=== PATIENT | female | born 1965 | race Caucasian/White ===

== ENCOUNTER 2021-08-31 02:25 | Emergency (ER) | payer OTHER ==
[~2021-08-31] VITALS: Ht 160 cm; Wt 47.2 kg
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
[2021-08-31] MEDS ORDERED: HYDROCODONE/APAP 5/325MG TABLET ONE (03:01)
[2021-08-31] MEDS: HYDROCODONE/APAP 5/325MG TABLET PO ONE (03:04)
--- NOTE | 2021-08-31 03:18 | NUR ---
PT TAKEN TO CT
--- NOTE | 2021-08-31 07:54 | NUR ---
Patient discharged in custody in stable condition. Written and verbal after care instructions given. Patient verbalizes understanding of instruction.
[2021-08-31 07:55] VITALS: BP 135/72
== END 2021-08-31 07:56 ==
LOC: ER 02:35
DX: S00.83XA Contusion of other part of head, initial encounter (principal); M54.2 Cervicalgia; R07.81 Pleurodynia; I10 Essential (primary) hypertension; E11.9 Type 2 diabetes mellitus without complications; Y04.2XXA Assault by strike against or bumped into by another person, initial encounter; Y93.89 Activity, other specified; Y92.89 Other specified places as the place of occurrence of the external cause; Y99.8 Other external cause status
CPT/HCPCS: 70450; 70486; 71100; 72125; 99284; L0172

== ENCOUNTER 2022-04-22 16:21 | Inpatient (IN) | payer MEDICAID, OTHER ==
[~2022-04-22] VITALS: Ht 160 cm; Wt 47.6 kg
--- NOTE | 2022-04-22 18:01 | NUR ---
TO ER 17 FOR EVAL,NO APPARENT CHANGE IN CONDITION
[2022-04-22] MEDS ORDERED: HYDROCODONE/APAP 5/325MG TABLET PO ONE (18:30)
[2022-04-22] MEDS ORDERED: HYDROCODONE/APAP 5/325MG TABLET ONE (19:33)
[2022-04-22] MEDS ORDERED: HYDROMORPHONE 1 MG/1 ML DISP.SYRIN IV ONE (20:00)
[2022-04-22] MEDS ORDERED: HYDROMORPHONE 1 MG/1 ML DISP.SYRIN ONE (20:04)
--- NOTE | 2022-04-22 20:12 | NUR ---
LA ORTHO PAGED PER DR HARRISON.
--- NOTE | 2022-04-22 20:21 | NUR ---
piv started, covid swab sent
[2022-04-22 21:55] LABS: BASOPHILS % (AUTO) 0.8 % (0.0-2.0); EOSINOPHILS % (AUTO) 1.4 % (0.0-6.0); HEMATOCRIT 35 % (33-45); LYMPHOCYTES # (AUTO) 1.1 K/uL (0.8-4.8); MEAN CORPUSCULAR HGB CONC 32 g/dl (31.0-36.0); MEAN CORPUSCULAR VOLUME 71 fL (82-100); MONOCYTES # (AUTO) 0.3 K/uL (0.1-1.30); NEUTROPHILS # (AUTO) 1.6 K/uL (1.8-8.9); NEUTROPHILS % (AUTO) 53.8 % (43.0-81.0); PLATELET COUNT (AUTO) 80 K/uL (150-450); RED BLOOD CELL COUNT(AUTO) 4.95 MIL/uL (4.0-5.2)
[2022-04-22 22:07] LABS: CALCIUM, SERUM 9.3 mg/dL (8.5-10.1); CREATININE 0.6 mg/dL (0.6-1.3); POTASSIUM 3.5 mmol/L (3.5-5.1)
[2022-04-22 22:12] LABS: ALBUMIN 3.3 g/dL (3.4-5.0); BILIRUBIN,TOTAL 1.1 mg/dL (0.2-1.0); MAGNESIUM 1.6 mg/dL (1.8-2.4); TOTAL PROTEIN, SERUM 8.8 g/dL (6.4-8.2)
[2022-04-22] MEDS ORDERED: MAG HYDROX/AL HYDROX/SIMETH 30 ML UDC PO PRN (22:30)
[2022-04-22] MEDS ORDERED: ACETAMINOPHEN 325 MG TABLET PO PRN (22:30)
[2022-04-22] MEDS ORDERED: ONDANSETRON HCL/PF 4 MG/2 ML VIAL ONE ×2 (22:46→23:34)
[2022-04-22] MEDS ORDERED: ONDANSETRON HCL/PF - ER 4 MG/2 ML VIAL IV ONE (23:00)
--- NOTE | 2022-04-22 23:00 | NUR ---
HOSPITALIST EKILA PEPPER PUMP SERVICER SUPERVISOR WITH PATIENT
[2022-04-22] MEDS ORDERED: Magnesium 1GM/D5W 100ML PREMIX 100 ML IV ONE (23:04)
[2022-04-22] MEDS ORDERED: INSULIN REGULAR, HUMAN 100 UNIT/ML 3 ML VIAL SQ PRN (23:30)
[2022-04-22] MEDS ORDERED: DEXTROSE 50%-WATER 50 ML DISP.SYRIN IV PRN (23:30)
[2022-04-22] MEDS: Magnesium 1GM/D5W 100ML PREMIX 100 ML IV SCH (23:30)
[2022-04-22] MEDS ORDERED: MORPHINE SULFATE INJ 4 MG/ML DISP.SYRIN ONE (23:50)
[2022-04-22] MEDS: IV LR 1000 ML 1,000 ML IV PRN (23:54)
[2022-04-22] MEDS: MORPHINE SULFATE INJ 2 MG/ML DISP.SYRIN IV PRN (23:55)
[2022-04-22] MEDS: ONDANSETRON HCL/PF 4 MG/2 ML VIAL IVP PRN (23:55)
--- NOTE | 2022-04-23 | NUR ---
PER HOUSE SUP, NO BEDS, PATIENT WILL BE STAYING IN ED UNTIL AM
[2022-04-23] MEDS: ZOLPIDEM TARTRATE 5 MG TABLET PO PRN ×2 (00:29→22:49)
[2022-04-23] MEDS ORDERED: ZOLPIDEM TARTRATE 5 MG TABLET ONE (00:29)
--- NOTE | 2022-04-23 00:44 | NUR ---
16FR INDWELLING FC INSERTED WITH 400ML LIGHT YELLOWN OUTPUT
--- NOTE | 2022-04-23 00:44 | NUR ---
16FR INDWELLING FC INSERTED WITH 400ML LIGHT YELLOWN OUTPUT
[2022-04-23] MEDS ORDERED: Magnesium 1GM/D5W 100ML PREMIX 100 ML IV ONE (01:31)
[2022-04-23] MEDS: Magnesium 1GM/D5W 100ML PREMIX 100 ML IV SCH (01:38)
[2022-04-23] MEDS ORDERED: MORPHINE SULFATE INJ 4 MG/ML DISP.SYRIN ONE ×2 (04:14→07:38)
[2022-04-23] MEDS: MORPHINE SULFATE INJ 2 MG/ML DISP.SYRIN IV PRN ×2 (04:18→07:46)
[2022-04-23 05:27] LABS: BASOPHILS % (AUTO) 0.7 % (0.0-2.0); EOSINOPHILS % (AUTO) 2.8 % (0.0-6.0); HEMATOCRIT 34 % (33-45); HEMOGLOBIN 10.5 g/dL (11.5-14.8); LYMPHOCYTES # (AUTO) 0.7 K/uL (0.8-4.8); LYMPHOCYTES % (AUTO) 31.5 % (20.0-44.0); MEAN CORPUSCULAR HGB CONC 31 g/dl (31.0-36.0); MEAN CORPUSCULAR VOLUME 71 fL (82-100); MONOCYTES # (AUTO) 0.2 K/uL (0.1-1.30); MONOCYTES % (AUTO) 9.1 % (2.0-12.0); NEUTROPHILS # (AUTO) 1.3 K/uL (1.8-8.9); NEUTROPHILS % (AUTO) 55.9 % (43.0-81.0); PLATELET COUNT (AUTO) 79 K/uL (150-450); RED BLOOD CELL COUNT(AUTO) 4.84 MIL/uL (4.0-5.2); WHITE BLOOD COUNT (AUTO) 2.4 K/uL (4.3-11.0)
[2022-04-23 05:50] LABS: CALCIUM, SERUM 9.1 mg/dL (8.5-10.1); CREATININE 0.6 mg/dL (0.6-1.3); PHOSPHORUS 3.7 mg/dL (2.5-4.9); POTASSIUM 3.7 mmol/L (3.5-5.1)
--- NOTE | 2022-04-23 06:52 | NUR ---
PT SLEEPING AT THIS TIME, NOT IN ANY DISTRESS, VSS.
--- NOTE | 2022-04-23 07:13 | NUR ---
MS 307-2
[2022-04-23] MEDS: PANTOPRAZOLE 40 MG TABLET.DR PO SCH (07:30)
[2022-04-23] MEDS ORDERED: GABA-532 PO (07:39)
[2022-04-23] MEDS ORDERED: INSU100I26 SQ (07:39)
[2022-04-23] MEDS ORDERED: METF-440 PO (07:39)
--- NOTE | 2022-04-23 07:54 | NUR ---
REPORT GIVEN TO KENIA TAYLOR FOR ROHAN
[2022-04-23 08:07] LABS: THYROID STIMULATING HORMONE 2.054 uIU/mL (0.358-3.74)
--- NOTE | 2022-04-23 08:15 | NUR ---
RN MS NOTES RECEIVED PT FROM E.R. STAFF VIA FELICIA, AWAKE, ALERT AND ORIENTED, NO COMPLAINT OF PAIN AT THIS TIME, RESPIRATIONS NORMAL, ON ROOM AIR, ROOM SET UP ORIENTATION PROVIDED TO PT, VERBALIZED UNDERSTANDING, CALL LIGHT PLACED WITHIN REACH.
[2022-04-23 08:20] VITALS: BP 130/64
[2022-04-23] MEDS: IV LR 1000 ML 1,000 ML IV PRN (09:01)
[2022-04-23] MEDS: HYDROMORPHONE 1 MG/1 ML DISP.SYRIN IV PRN ×2 (11:10→18:27)
[2022-04-23] MEDS: BLOOD SUGAR DIAGNOSTIC 1 EACH STRIP IN SCH ×3 (11:58→23:26)
[2022-04-23] MEDS: INSULIN REGULAR, HUMAN 100 UNIT/ML 3 ML VIAL SQ PRN ×3 (12:00→23:26)
[2022-04-23] MEDS ORDERED: BLOOD SUGAR DIAGNOSTIC 1 EACH STRIP IN SCH (12:00)
[2022-04-23] MEDS ORDERED: DEXTROSE 50%-WATER 50 ML DISP.SYRIN IV PRN (12:00)
--- NOTE | 2022-04-23 12:36 | NUR ---
RN MS NOTES DR. SOLIS AT BEDSIDE WITH PT AND PT'S SISTER, PLAN OF CARE BEING DISCUSSED.
[2022-04-23] MEDS: ONDANSETRON HCL/PF 4 MG/2 ML VIAL IVP PRN ×2 (12:47→22:48)
[2022-04-23 14:47] LABS: BAND % (MANUAL) 4 % (0.0-5.0); NEUTROPHILS % (MANUAL) 44 (42-76)
[2022-04-23 14:48] LABS: EOSINOPHILS % (MANUAL) 2 % (0-4); LYMPHOCYTES % (MANUAL) 40 % (16-48); METAMYELOCYTES % 2 % (0-0); MONOCYTES % (MANUAL) 6 % (0-11.0); MYELOCYTES % 2 % (0-0)
[2022-04-23] MEDS ORDERED: HYDROMORPHONE 1 MG/1 ML DISP.SYRIN IV ONE ×2 (15:00→22:00)
[2022-04-23 16:13] LABS: BAND % (MANUAL) 4 % (0.0-5.0); BASOPHILS % (MANUAL) 0 % (0.0-2.0); EOSINOPHILS % (MANUAL) 1 % (0-4); LYMPHOCYTES % (MANUAL) 25 % (16-48); MONOCYTES % (MANUAL) 8 % (0-11.0); NEUTROPHILS % (MANUAL) 62 (42-76)
--- NOTE | 2022-04-23 18:44 | NUR ---
RN CLOSING NOTES PATIENT ON BED, AWAKE, ALERT AND ORIENTEDX4. ON ROOM AIR TOLERATING WELL. WITH IVF AT LEFT ARM,INFUSING WELL. WITH PENNY CATHETER, DRAINING LIGHT YELLOWISH URINE OUTPUT. PATIENT HAS BEEN ANXIOUS ALL THROUGHOUT THE SHIFT AND C/O SEVERE PAIN, MANAGED WITH PAIN MEDICATION AND SOME NON THERAPEUTIC MANAGEMENT. BARK PRESS OPERATOR WAS UNABLE TO COMPLETE A THOROUGH PHYSICAL ASSESSMENT PATIENT WAS CONSTANTLY REFUSING, APPROACHED SEVERAL TIMES WITH NO SUCCESS. PATIENT SCHEDULED FOR SURGERY TOMORROW. CONSENT SECURED. ENDORSED TO INCOMING NOD.
[2022-04-23 20:00] VITALS: BP 181/91
--- NOTE | 2022-04-23 21:48 | NUR ---
RIGHT HIP PAIN Patient had IV Dilaudid 1mg at 1827 not due for next dose PRN. Patient c/o pain 03/24 reports medication not helping stated she is getting pain medication every 4 hours not every 6 hours. Patient crying, refused to be made comfortable in bed. Declined education. Notified BUILDING APPRAISER Luis Felipe with new orders given.
--- NOTE | 2022-04-23 22:55 | NUR ---
NAUSEA Patient feels nauseated, no emesis. Unable to sleep and request sleep aid. Given IV Zofran and Ambien, will monitor hours of sleep.
--- NOTE | 2022-04-23 23:27 | NUR ---
ACCU CHECK Bld glucose 104mg/dl. Hold insulin per level ordered.
--- NOTE | 2022-04-24 00:38 | NUR ---
NAUSEA Patient c/o nausea, stated "I need stronger one". Patient not due for next IV Zofran PRN. Notified TONGER Luis Felipe, awaiting orders.
[2022-04-24] MEDS: METOCLOPRAMIDE HCL 10 MG/2 ML VIAL IV PRN ×2 (01:05→11:00)
--- NOTE | 2022-04-24 01:08 | NUR ---
IV ZOFRAN INEFFECTIVE Patient c/o nausea, no emesis. Given IV Reglan, will continue to monitor.
[2022-04-24] MEDS: HYDROMORPHONE 1 MG/1 ML DISP.SYRIN IV PRN ×5 (01:13→22:04)
--- NOTE | 2022-04-24 01:16 | NUR ---
RIGHT HIP PAIN Patient c/o right hip pain described as sharp, throbbing. Crying behavior, focus on next schedule pain medication at all times. Given IV Dilaudid, will reassess pain level.
[2022-04-24] MEDS: IV LR 1000 ML 1,000 ML IV PRN ×2 (04:57→20:07)
[2022-04-24 05:05] VITALS: BP 187/94
[2022-04-24] MEDS ORDERED: hydrALAZINE HCL IV 20 MG VIAL IV PRN (05:30)
[2022-04-24] MEDS: INSULIN REGULAR, HUMAN 100 UNIT/ML 3 ML VIAL SQ PRN ×2 (05:42→18:44)
[2022-04-24] MEDS: BLOOD SUGAR DIAGNOSTIC 1 EACH STRIP IN SCH ×4 (05:42→23:55)
--- NOTE | 2022-04-24 05:42 | NUR ---
ACCU CHECK Bld glucose 124mg/dl. Hold insulin per level ordered.
--- NOTE | 2022-04-24 05:48 | NUR ---
ELEVATED BP SBP 187/94 Patient denies headache, no c/o dizziness. Notified MULTIPLE TUBE WINDING MACHINE OPERATOR Luis Felipe with new orders given.
--- NOTE | 2022-04-24 06:10 | NUR ---
END OF SHIFT REPORT Patient in bed, Alert Oriented x4. Patient focus on pain medication timing. IV line left AC intact, IVF infusing. Right hip pain managed with PRN Dilaudid. Nausea improved with IV Reglan. NPO since midnight. Piedra cath draining to gravity, output adequate. Plan for procedure today. Consent in the yosi. Will endorse to oncoming RN.
[2022-04-24] MEDS: PANTOPRAZOLE 40 MG TABLET.DR PO SCH (07:30)
--- NOTE | 2022-04-24 07:41 | NUR ---
RN NOTES RECEIVED PATIENT AWAKE IN BED. NO PAIN NOTED. NO SOB NOTED. NO DISTRESS NOTED.A/O TIMES 4. NPO FOR RIGH HIP FRACTURE SURGERY AROUND 1300. PENNY CATHETER INTACT AND DRAINING YELLOW COLOR URINE. IV ACCESS ON THE LAC # 20 INTACT AND RUNNING LR AT 75 ML/HR. ALL NEEDS ATTENDED. ALL SAFETY MEASURES IN PLACE. BED LOCKED IN THE LOWEST POSITION. CALL LIGHT AND TABLE IN EASY REACH. SIDE RAILS UP TIMES 2. WILL CONTINUE TO MONITOR.
[2022-04-24 08:00] VITALS: BP 145/72
--- NOTE | 2022-04-24 08:15 | NUR ---
RN NOTES PATIENT STARTED TO COMPLAIN OF SEVERE PAIN. NO PRN MEDICATION DUE YET. ALVIN COSME GAVE ONE TIME PRN ORDER OF DILAUDID 0.5 MG IV FOR 08.
[2022-04-24] MEDS ORDERED: HYDROMORPHONE 1 MG/1 ML DISP.SYRIN IV ONE (08:30)
[2022-04-24 09:26] LABS: CALCIUM, SERUM 9.2 mg/dL (8.5-10.1); CREATININE 0.7 mg/dL (0.6-1.3); MAGNESIUM 1.6 mg/dL (1.8-2.4); PHOSPHORUS 3.5 mg/dL (2.5-4.9); POTASSIUM 3.4 mmol/L (3.5-5.1)
[2022-04-24] MEDS ORDERED: BUPIVACAINE 0.25% 75 MG/30 ML VIAL ONE (09:35)
[2022-04-24 09:53] LABS: BASOPHILS % (AUTO) 0.5 % (0.0-2.0); EOSINOPHILS % (AUTO) 0.2 % (0.0-6.0); HEMATOCRIT 40 % (33-45); HEMOGLOBIN 12.3 g/dL (11.5-14.8); LYMPHOCYTES # (AUTO) 0.8 K/uL (0.8-4.8); LYMPHOCYTES % (AUTO) 17.4 % (20.0-44.0); MEAN CORPUSCULAR HGB CONC 31 g/dl (31.0-36.0); MEAN CORPUSCULAR VOLUME 70 fL (82-100); MONOCYTES # (AUTO) 0.5 K/uL (0.1-1.30); MONOCYTES % (AUTO) 11.8 % (2.0-12.0); NEUTROPHILS # (AUTO) 3.2 K/uL (1.8-8.9); NEUTROPHILS % (AUTO) 70.1 % (43.0-81.0); PLATELET COUNT (AUTO) 123 K/uL (150-450); RED BLOOD CELL COUNT(AUTO) 5.61 MIL/uL (4.0-5.2); WHITE BLOOD COUNT (AUTO) 4.6 K/uL (4.3-11.0)
[2022-04-24] MEDS ORDERED: ANESTHESIA TRAY IN PYXIS 1 EA TRAY MC ONE (10:05)
[2022-04-24] MEDS ORDERED: FENTANYL PF 100MCG/2ML AMPUL ONE (12:04)
[2022-04-24] MEDS ORDERED: HYDROMORPHONE INJ 2 MG/ML DISP.SYRIN ONE (12:05)
[2022-04-24] MEDS ORDERED: FAMOTIDINE/PF INJ 20 MG/2 ML VIAL IV ONE (12:05)
[2022-04-24] MEDS ORDERED: MIDAZOLAM HCL 2 MG/2ML VIAL ONE (12:05)
[2022-04-24] MEDS ORDERED: ROCURONIUM BROMIDE 50 MG/5 ML ONE (12:06)
--- NOTE | 2022-04-24 12:30 | NUR ---
RN NOTES PATIENT LEFT UNIT FOR SURGERY AT 1230.
[2022-04-24] MEDS ORDERED: MEPERIDINE25 MG SYR 25 MG/ML VIAL ONE (14:24)
[2022-04-24] MEDS ORDERED: HYDROMORPHONE 1 MG/1 ML DISP.SYRIN ONE ×2 (14:29→14:51)
--- NOTE | 2022-04-24 15:30 | NUR ---
RN NOTES PATIENT BACK FROM SURGERY AT 1530. VITAL SIGNS IP=553/68, P=138, O2=90%RA. ALERT AND ORIENTED TIMES 4. NO ACTIVE BLEEDING NOTED AT THE SIDE. HEART RATE REMAINS IN 140 RANGES. INFORMED CARMELINA THE DEEP SUBMERGENCE VEHICLE OPERATOR. ORDERED OF KEEP CHECKING THE O2, ON O2 INHALATION VIA NASAL CANNULA AT 2-3 L/MIN. 1000 ML BOLUS OF LR ONE TIME. ALSO PAIN MANAGEMENT DR KLEIN WILL VISIT THE PATIENT. STAT ORDER OF URINE DRUG SCREENING COLLECTED. WILL CONTINUE TO MONITOR CLOSELY.
[2022-04-24 16:00] VITALS: BP 134/68
[2022-04-24] MEDS ORDERED: ENOXAPARIN SODIUM 40 MG/0.4 ML DISP.SYRIN SQ SCH (17:00)
[2022-04-24] MEDS: oxyCODONE/APAP (5/325 MG) 1 UDTAB TABLET PO PRN (18:59)
--- NOTE | 2022-04-24 19:30 | NUR ---
MS RN OPENING NOTE RECEIVED PT AWAKE IN BED. A/O X4 AND ABLE TO MAKE NEEDS KNOWN. SISTER AND FRIEND AT BEDSIDE. PT STABLE ON ROOM AIR. NO SOB OR S/S OF RESPIRATORY DISTRESS. BREATHING EVEN AND UNLABORED. IV ACCESS LAC 20G RUNNING LR @ 75 ML/HR, INTACT AND PATENT. NO COMPLAINTS OF PAIN OR DISCOMFORT AT THIS TIME. PENNY IN PLACE DRAINING CLEAR YELLOW URINE. SAFETY PRECAUTIONS IN PLACE. BED IN LOWEST LOCKED POSITION, HOB ELEVATED, SIDE RAILS UP X2, AND CALL LIGHT AND TABLE WITHIN REACH. ALL NEEDS MET AT THIS TIME.
[2022-04-24 20:00] VITALS: BP 126/65
--- NOTE | 2022-04-24 20:20 | NUR ---
RN NOTES PATIENT AWAKE IN BED. NO PAIN NOTED. THE NEW DOSE OF PERCOCET HELPED HER PERFECTLY. NO SOB NOTED. NO DISTRESS NOTED.A/O TIMES 4. PENNY CATHETER INTACT AND DRAINING YELLOW COLOR URINE. URINE OUTPUT NOTED 700 ML.IV ACCESS ON THE LAC # 20 INTACT AND RUNNING LR AT 75 ML/HR. ALL NEEDS ATTENDED. ALL DUE MEDS GIVEN ORDERED. HR IN 118 RANGE. ALL SAFETY MEASURES IN PLACE. BED LOCKED IN THE LOWEST POSITION. CALL LIGHT AND TABLE IN EASY REACH. SIDE RAILS UP TIMES 2. SISTER AND FRIEND AT BED SIDE. WILL ENDORSE FOR ROHAN.
[2022-04-24] MEDS: ANCEF 1 GM/50 ML D5W IV SCH ×2 (20:51)
[2022-04-24] MEDS: METHOCARBAMOL (500MG) 500 MG TABLET PO SCH (23:55)
[2022-04-25] MEDS: INSULIN REGULAR, HUMAN 100 UNIT/ML 3 ML VIAL SQ PRN ×3 (00:01→23:36)
[2022-04-25] MEDS: oxyCODONE/APAP (5/325 MG) 1 UDTAB TABLET PO PRN ×5 (02:17→20:18)
[2022-04-25] MEDS: ANCEF 1 GM/50 ML D5W IV SCH ×2 (04:11)
[2022-04-25 05:43] LABS: BAND % (MANUAL) 2 % (0.0-5.0); LYMPHOCYTES % (MANUAL) 19 % (16-48); MONOCYTES % (MANUAL) 15 % (0-11.0); NEUTROPHILS % (MANUAL) 64 (42-76)
[2022-04-25] MEDS: METHOCARBAMOL (500MG) 500 MG TABLET PO SCH ×4 (05:47→23:27)
[2022-04-25] MEDS: BLOOD SUGAR DIAGNOSTIC 1 EACH STRIP IN SCH ×4 (05:47→23:34)
[2022-04-25 07:00] VITALS: BP 165/83
--- NOTE | 2022-04-25 07:02 | NUR ---
MS RN CLOSING NOTE PATIENT IN BED, ASLEEP BUT EASY TO AROUSE AND RESPONSIVE. AFEBRILE AND NOT IN ANY FORM OF ACUTE DISTRESS. BREATHING EVEN AND NON LABORED. NO C/O NAUSEA, VOMITING OR ABDOMUNAL DISCOMFORT THROUGHOUT THE SHIFT. WITH IV ACCESS ON LEFT ANTECUBITAL 20G, INFUSING WITH LR AT 75ML/HR. WITH INTACT PENNY CATHETER DRAINING WELL WITH YELLOW URINE OUTPUT AT AROUND 2500CC DURING THE SHIFT, NO HEMATURIA OR SEDIMENTS NOTED. MONITORED FOR ANY S/SX. OF HYPO/HYPERGLYCEMIA. MEDICATED ORDERED. CONTINUOUS ON IV ATB, MONITORED FOR ANY ADVERSE REACTION. OFFERED AND ENCOURAGED FLUIDS TOLERATED. ENCOURAGED TO TURN AND REPOSITION EVERY 2 HOURS AND TOLERATED TO PROMOTE PROPER CIRCULATION AND COMFORT. SAFETY MEASURES IN PLACE. KEPT BED IN LOCKED AND IN LOW POSITION TO REDUCE INJURY. SIDE RAILS UP X2. ADVISED TO USE THE CALL LIGHT WHEN IN NEED OF ASSISTANCE. ALL NURSING NEEDS ATTENDED.
--- NOTE | 2022-04-25 07:23 | NUR ---
RN OPENING NOTES RECEIVED PATIENT AWAKE IN BED. NO PAIN NOTED. NO SOB NOTED. NO DISTRESS NOTED.A/O TIMES 4. S/P OF [facility] HIP FRACTURE SURGERY ON 04/24/22. PENNY CATHETER INTACT AND DRAINING YELLOW COLOR URINE. IV ACCESS ON THE LAC # 20 INTACT AND RUNNING LR AT 75 ML/HR. ALL NEEDS ATTENDED. ON O2 INHALATION VIA NASAL CANNULA . TOLERATING WELL.ALL SAFETY MEASURES IN PLACE. BED LOCKED IN THE LOWEST POSITION. CALL LIGHT AND TABLE IN EASY REACH. SIDE RAILS UP TIMES 2. WILL CONTINUE TO MONITOR.
[2022-04-25 07:50] LABS: CALCIUM, SERUM 9.3 mg/dL (8.5-10.1); CREATININE 0.6 mg/dL (0.6-1.3); MAGNESIUM 1.6 mg/dL (1.8-2.4); PHOSPHORUS 3.2 mg/dL (2.5-4.9); POTASSIUM 3.6 mmol/L (3.5-5.1)
[2022-04-25] MEDS: PANTOPRAZOLE 40 MG TABLET.DR PO SCH (08:12)
[2022-04-25] MEDS: HYDROMORPHONE 1 MG/1 ML DISP.SYRIN IV PRN ×4 (08:16→22:39)
[2022-04-25 08:45] LABS: BASOPHILS % (AUTO) 0.1 % (0.0-2.0); HEMATOCRIT 34 % (33-45); HEMOGLOBIN 10.4 g/dL (11.5-14.8); LYMPHOCYTES # (AUTO) 0.7 K/uL (0.8-4.8); LYMPHOCYTES % (AUTO) 3.6 % (20.0-44.0); MEAN CORPUSCULAR HGB CONC 30 g/dl (31.0-36.0); MEAN CORPUSCULAR VOLUME 71 fL (82-100); MONOCYTES # (AUTO) 1.3 K/uL (0.1-1.30); MONOCYTES % (AUTO) 6.8 % (2.0-12.0); NEUTROPHILS # (AUTO) 16.7 K/uL (1.8-8.9); NEUTROPHILS % (AUTO) 89.5 % (43.0-81.0); PLATELET COUNT (AUTO) 86 K/uL (150-450); RED BLOOD CELL COUNT(AUTO) 4.83 MIL/uL (4.0-5.2); WHITE BLOOD COUNT (AUTO) 18.7 K/uL (4.3-11.0)
[2022-04-25] MEDS ORDERED: MAGNESIUM OXIDE 400 MG TABLET PO ONE (10:00)
[2022-04-25] MEDS: ENOXAPARIN SODIUM 40 MG/0.4 ML DISP.SYRIN SQ SCH (10:05)
[2022-04-25] MEDS: IV LR 1000 ML 1,000 ML IV PRN (13:43)
[2022-04-25 16:00] VITALS: BP 154/80
[2022-04-25] MEDS: GLUCERNA SHAKE 237 ML CAN PO SCH (17:40)
[2022-04-25 17:44] LABS: BAND % (MANUAL) 9 % (0.0-5.0); LYMPHOCYTES % (MANUAL) 9 % (16-48); METAMYELOCYTES % 3 % (0-0); MONOCYTES % (MANUAL) 5 % (0-11.0); NEUTROPHILS % (MANUAL) 74 (42-76)
--- NOTE | 2022-04-25 19:30 | NUR ---
RN CLOSING NOTES PATIENT AWAKE IN BED. NO PAIN NOTED. NO SOB NOTED. NO DISTRESS NOTED.A/O TIMES 4. S/P OF [facility] HIP FRACTURE SURGERY ON 04/24/22. PENNY CATHETER INTACT AND DRAINING YELLOW COLOR URINE. IV ACCESS ON THE LAC # 20 INTACT AND RUNNING LR AT 75 ML/HR. ALL NEEDS ATTENDED. ALL DUE MEDS GIVEN ORDERED. ON O2 INHALATION VIA NASAL CANNULA . TOLERATING WELL.ALL SAFETY MEASURES IN PLACE. BED LOCKED IN THE LOWEST POSITION. CALL LIGHT AND TABLE IN EASY REACH. SIDE RAILS UP TIMES 2. WILL ENDORSE FOR ROHAN.
--- NOTE | 2022-04-25 19:30 | NUR ---
MS RN OPENING NOTE RECEIVED PT AWAKE IN BED. A/O X4 AND ABLE TO MAKE NEEDS KNOWN. SISTER AND FRIEND AT BEDSIDE. PT ON O2 @ 2LPM, TOLERATING WELL. NO SOB OR S/S OF RESPIRATORY DISTRESS. BREATHING EVEN AND UNLABORED. IV ACCESS LAC 20G RUNNING LR @ 75 ML/HR, INTACT AND PATENT. NO COMPLAINTS OF PAIN OR DISCOMFORT AT THIS TIME. PENNY IN PLACE DRAINING CLEAR YELLOW URINE. SAFETY PRECAUTIONS IN PLACE. BED IN LOWEST LOCKED POSITION, HOB ELEVATED, SIDE RAILS UP X2, AND CALL LIGHT AND TABLE WITHIN REACH. ALL NEEDS MET AT THIS TIME.
[2022-04-25 20:00] VITALS: BP 171/99
[2022-04-25] MEDS: METOCLOPRAMIDE HCL 10 MG/2 ML VIAL IV PRN (20:18)
--- NOTE | 2022-04-25 20:19 | NUR ---
RN NOTE PT COMPLAINED OF PAIN 10/10 OF R HIP. ADMINISTERED PERCOCET 5/325 MG 2 UTAB FOR SEVERE PAIN ORDERED. PT ALSO COMPLAINED OF NAUSEA AND REQUESTED THE REGLAN. ADMINISTERED MEDICATION ORDERED FOR NAUSEA PER PT REQUEST. MADE COMFORTABLE IN BED. ALL NEEDS MET AT THIS TIME.
[2022-04-25 21:00] VITALS: BP 160/88
--- NOTE | 2022-04-25 22:39 | NUR ---
RN NOTE PT COMPLAINED OF PAIN OF R HIP 03/24. ADMINISTERED DILAUDID 1 MG FOR SEVERE PAIN ORDERED. MADE COMFORTABLE IN BED. ALL NEEDS MET AT THIS TIME.
[2022-04-26] MEDS: ZOLPIDEM TARTRATE 5 MG TABLET PO PRN (00:45)
--- NOTE | 2022-04-26 00:48 | NUR ---
RN NOTE PT COMPLAINING OF INSOMNIA. ADMINISTERED AMBIEN 5 MG FOR INSOMNIA ORDERED. MADE COMFORTABLE IN BED. ALL NEEDS MET AT THIS TIME.
[2022-04-26] MEDS: HYDROMORPHONE 1 MG/1 ML DISP.SYRIN IV PRN ×5 (02:46→22:56)
--- NOTE | 2022-04-26 03:00 | NUR ---
STAT EKG COMPLETED, RESULTS GIVEN TO CLAUDIA WILDE
--- NOTE | 2022-04-26 03:28 | NUR ---
RN NOTE PT NOTED WITH ELEVATED T WAVE. STAT EKG ORDERED AND ADVANCED PRACTICE NURSE PSYCHOTHERAPIST SHANTELLE MADE AWARE OF RESULTS WITH ORDER FOR STAT TROPONIN. ORDER NOTED AND CARRIED OUT. CHARGE NURSE CARRINGTON AWARE.
[2022-04-26] MEDS: METHOCARBAMOL (500MG) 500 MG TABLET PO SCH ×3 (05:18→17:12)
[2022-04-26] MEDS: BLOOD SUGAR DIAGNOSTIC 1 EACH STRIP IN SCH ×3 (05:28→17:12)
[2022-04-26] MEDS: oxyCODONE/APAP (5/325 MG) 1 UDTAB TABLET PO PRN ×4 (05:43→19:52)
--- NOTE | 2022-04-26 05:44 | NUR ---
RN NOTE PT COMPLAINED OF PAIN 10/10 OF R HIP. ADMINISTERED PERCOCET 5/325 MG 2 UTAB FOR SEVERE PAIN ORDERED. ALL NEEDS MET AT THIS TIME.
[2022-04-26] MEDS: IV LR 1000 ML 1,000 ML IV PRN ×2 (06:36→22:50)
--- NOTE | 2022-04-26 06:46 | NUR ---
MS RN CLOSING NOTE PT AWAKE IN BED. A/O X4 AND ABLE TO MAKE NEEDS KNOWN. PT ON O2 @ 2LPM, TOLERATING WELL. NO SOB OR S/S OF RESPIRATORY DISTRESS. BREATHING EVEN AND UNLABORED. IV ACCESS LAC 20G RUNNING LR @ 75 ML/HR, INTACT AND PATENT. NO COMPLAINTS OF PAIN OR DISCOMFORT AT THIS TIME. PENNY IN PLACE DRAINING CLEAR YELLOW URINE, DRAINED 1700 ML THIS SHIFT. ALL DUE MEDS GIVEN ORDERED. SAFETY PRECAUTIONS IN PLACE AT ALL TIMES. BED IN LOWEST LOCKED POSITION, HOB ELEVATED, SIDE RAILS UP X2, AND CALL LIGHT AND TABLE WITHIN REACH. ALL NEEDS MET AT THIS TIME AND WILL ENDORSE TO ONCOMING NURSE FOR ROHAN.
[2022-04-26 08:00] VITALS: BP 196/104
--- NOTE | 2022-04-26 08:14 | NUR ---
RN OPENING NOTE PATIENT RECEIVED IN BED, AO X 4, ABLE TO RESPONDS ALL STIMULI. IN NO ACUTE DISTRESS NOTED. RESPIRATORY EVEN AND UNLABORED ON 2Ls NC VIA NC PRN. SKIN IS WARM TO TOUCH, KEEP CLEAN/DRY. KEPT ELEVATED HOB FOR ENSURE AIRWAY AND ASPIRATION PRECAUTION, ALSO LOWEST POSITION OF THE BED, S/R UP X 3, BED ALARM IS ON AT ALL THE TIMES. ALL SAFETY PRECAUTION APPLIED. CALL LIGHT WITHIN REACH, WILL CONTINUE TO MONITOR.
[2022-04-26] MEDS: PANTOPRAZOLE 40 MG TABLET.DR PO SCH (08:46)
[2022-04-26] MEDS: ENOXAPARIN SODIUM 40 MG/0.4 ML DISP.SYRIN SQ SCH (08:48)
[2022-04-26] MEDS: GLUCERNA SHAKE 237 ML CAN PO SCH ×2 (08:56→17:15)
[2022-04-26] MEDS ORDERED: hydrALAZINE HCL IV 20 MG VIAL IV PRN (09:30)
[2022-04-26 09:49] LABS: BASOPHILS % (AUTO) 0.3 % (0.0-2.0); EOSINOPHILS % (AUTO) 0.5 % (0.0-6.0); HEMATOCRIT 32 % (33-45); HEMOGLOBIN 9.6 g/dL (11.5-14.8); MEAN CORPUSCULAR HGB CONC 31 g/dl (31.0-36.0); MEAN CORPUSCULAR VOLUME 71 fL (82-100); MONOCYTES # (AUTO) 0.6 K/uL (0.1-1.30); MONOCYTES % (AUTO) 6.6 % (2.0-12.0); NEUTROPHILS # (AUTO) 7.3 K/uL (1.8-8.9); NEUTROPHILS % (AUTO) 81.6 % (43.0-81.0); PLATELET COUNT (AUTO) 77 K/uL (150-450); RED BLOOD CELL COUNT(AUTO) 4.44 MIL/uL (4.0-5.2); WHITE BLOOD COUNT (AUTO) 8.9 K/uL (4.3-11.0)
[2022-04-26 10:11] LABS: CALCIUM, SERUM 8.6 mg/dL (8.5-10.1); CREATININE 0.6 mg/dL (0.6-1.3); MAGNESIUM 1.6 mg/dL (1.8-2.4); PHOSPHORUS 2.8 mg/dL (2.5-4.9); POTASSIUM 3.5 mmol/L (3.5-5.1)
[2022-04-26 11:21] LABS: BAND % (MANUAL) 1 % (0.0-5.0); EOSINOPHILS % (MANUAL) 1 % (0-4); LYMPHOCYTES % (MANUAL) 13 % (16-48); METAMYELOCYTES % 1 % (0-0); MONOCYTES % (MANUAL) 2 % (0-11.0); MYELOCYTES % 1 % (0-0); NEUTROPHILS % (MANUAL) 81 (42-76)
[2022-04-26] MEDS: INSULIN REGULAR, HUMAN 100 UNIT/ML 3 ML VIAL SQ PRN (12:15)
[2022-04-26 12:58] LABS: BILIRUBIN,URINE NEGATIVE (NEGATIVE); COLOR,URINE YELLOW (YELLOW); LEUKOCYTE ESTERASE ,URINE NEGATIVE (NEGATIVE); NITRITE, URINE NEGATIVE (NEGATIVE); PH,URINE 7.5 (5.0-8.0); PROTEIN,URINE NEGATIVE (NEGATIVE); UGLUCOSE NEGATIVE (NEGATIVE)
--- NOTE | 2022-04-26 13:14 | NUR ---
PATIENT NOTED THE CRITICAL HIGH LEVEL OF PROCALCITONIN 4.82. MD MADE AWARE AND RECEIVED NEW ORDER: LEVAQUIN 500MG PO DAILY X 7DAY, NOTED AND CARRY OUT.
[2022-04-26 13:31] LABS: RBC,URINE 21-50 /HPF (0-2)
[2022-04-26 13:32] LABS: BACTERIA,URINE Few /HPF (None Seen)
[2022-04-26] MEDS: LEVOFLOXACIN (250MG) 250 MG TABLET PO SCH (14:56)
[2022-04-26 16:00] VITALS: BP 150/79
--- NOTE | 2022-04-26 18:30 | NUR ---
RN CLOSING NOTE PATIENT IN BED AND RESTING. IN NO ACUTE DISTRESS OBSERVED. RESPIRATORY EVEN AND UNLOBED IN MARK AIR. SKIN IS WARM TO TOUCH, KEEP CLEAN/DRY. PATIENT C/O NAUSEA AND GIVEN REGLAN VIA IV. KEPT ELEVATED HOB FOR ENSURE AIR WAY AND ASPIRATION PRECAUTION, ALSO LOWEST BED POSITION. BED ALARM IS ON AT ALL THE TIMES, ALL SAFETY PRECAUTION APPLIED. CALL LIGHT WITHIN REACH, WILL ENDORSE RAIMANN MACHINE OPERATOR.
[2022-04-26] MEDS: METOCLOPRAMIDE HCL 10 MG/2 ML VIAL IV PRN (18:34)
[2022-04-26 20:00] VITALS: BP_SYST 95
--- NOTE | 2022-04-26 20:14 | NUR ---
MS RN OPENING NOTE PATIENT AWAKE IN BED WITH FAMILY AT BEDSIDE, PT ALERT/ORIENTED X 3, PT ABLE TO MAKE NEEDS KNOWN. PATIENT STABLE ON RA, NO S/S OF DISTRESS OR SOB NOTED, BREATHING EVEN AND UNLABORED. PT AMBULATED TO BATHROOM WITH CANE AND 1 PERSON ASSIST. PATIENT C/O OF 10/10 HIP PAIN, 2 TABS PERCOCET GIVEN ORDERED. SAFETY MEASURES IN PLACE: CALL LIGHT WITHIN REACH, SIDE RAILS UP X 2, BED LOCKED IN LOWEST POSITION, BED ALARM ON. WILL CONTINUE TO MONITOR PATIENT
[2022-04-27] MEDS: ZOLPIDEM TARTRATE 5 MG TABLET PO PRN (00:18)
[2022-04-27] MEDS: BLOOD SUGAR DIAGNOSTIC 1 EACH STRIP IN SCH ×5 (00:29→23:02)
--- NOTE | 2022-04-27 00:30 | NUR ---
MS RN NOTE PATIENT REQUESTED AMBIEN TO SLEEP. EXPLAINED TO PATIENT THAT SCHEDULED ROBAXIN 500 MG PO DUE AT THIS TIME AND I'M UNABLE TO GIVE BOTH AT THE SAME TIME, MUST WAIT AT LEAST 1 HOUR IN BETWEEN MEDS. PATIENT STATED SHE WOULD RATHER HAVE THE AMBIEN BECAUSE ROBAXIN DOESN'T HELP HER MUCH WITH PAIN ANYWAY. PATIENT REFUSED ROBAXIN DESPITE EXPLANATION OF RISKS AND BENEFITS
[2022-04-27] MEDS: INSULIN REGULAR, HUMAN 100 UNIT/ML 3 ML VIAL SQ PRN ×4 (00:33→23:18)
[2022-04-27] MEDS: ONDANSETRON HCL/PF 4 MG/2 ML VIAL IVP PRN ×2 (00:34→17:19)
[2022-04-27] MEDS: oxyCODONE/APAP (5/325 MG) 1 UDTAB TABLET PO PRN ×6 (01:24→23:03)
[2022-04-27] MEDS: HYDROMORPHONE 1 MG/1 ML DISP.SYRIN IV PRN ×3 (03:05→12:57)
[2022-04-27] MEDS: METHOCARBAMOL (500MG) 500 MG TABLET PO SCH ×4 (06:00→17:17)
--- NOTE | 2022-04-27 07:30 | NUR ---
RECEIVED PATIENT IN BED, AWAKE, ALERT AND ORIENTED WITH SISTER AND FRIEND AT BEDSIDE. ABLE TO MAKE NEEDS KNOWN. AFEBRILE AND NOT IN ANY FORM OF ACUTE DISTRESS. BREATHING EVEN AND NON LABORED. NO C/O PAIN OR DISCOMFORT AT THIS TIME. SAFETY MEASURES IN PLACE. KEPT BED IN LOCKED AND IN LOW POSITION TO REDUCE INJURY. SIDE RAILS UP X2. ADVISED TO USE THE CALL LIGHT WHEN IN NEED OF ASSISTANCE. Addendum: 04/27/22 at 2022 by STEFANO MATHUR RN WRONG TIME OF INPUT
--- NOTE | 2022-04-27 07:30 | NUR ---
MS RN CLOSING NOTE PATIENT DOZING OFF IN BED, ALERT/ORIENTED X 4, PT ABLE TO MAKE NEEDS KNOWN, PT NOTED WITH EPISODE OF ANXIETY. PATIENT STABLE ON RA, NO S/S OF DISTRESS OR SOB NOTED, BREATHING EVEN AND UNLABORED. PATIENT CONTINUOUSLY ASKING FOR PAIN MEDICATION ALL SHIFT. PATIENT REFUSED ROBAXIN THIS SHIFT, STATED IT DOESN'T HELP HER WITH PAIN AND WAS REQUESTING DILAUDID OR PERCOCET AT THE TIME ROBAXIN WAS DUE, CONTRAINDICATED TO GIVE BOTH MEDICATIONS TOGETHER. MEDICATIONS GIVEN ORDERED, PT NEEDS MET THROUGHOUT SHIFT. ASSISTED PATIENT TO BEDSIDE COMMODE THROUGHOUT THE NIGHT. MEDICATIONS GIVEN ORDERED, PT NEEDS MET THROUGHOUT SHIFT. SAFETY MEASURES IN PLACE: CALL LIGHT WITHIN REACH, SIDE RAILS UP X 2, BED LOCKED IN LOWEST POSITION, BED ALARM ON. ENDORSED TO DAYSHIFT NURSE FOR CONTINUITY OF CARE
--- NOTE | 2022-04-27 07:30 | NUR ---
RN OPENING NOTE RECEIVED PATIENT IN BED, AWAKE, ALERT AND ORIENTED X4, WITH SISTER AND FRIEND AT BEDSIDE. ABLE TO COMMUNICATE NEEDS WITH THE STAFFS. AFEBRILE AND NOT IN ANY FORM OF ACUTE DISTRESS. BREATHING EVEN AND NON LABORED. NO C/O PAIN OR DISCOMFORT AT THIS TIME. SAFETY MEASURES IN PLACE. KEPT BED IN LOCKED AND IN LOW POSITION TO REDUCE INJURY. SIDE RAILS UP X2. ADVISED TO USE THE CALL LIGHT WHEN IN NEED OF ASSISTANCE. Addendum: 04/27/22 at 2022 by STEFANO MATHUR RN WRONG TIME OF INPUT
--- NOTE | 2022-04-27 07:53 | NUR ---
RN OPENING NOTE PATIENT RECEIVED IN BED, SLEEPING AT THIS TIME, AO X 4, ABLE TO RESPONDS ALL STIMULI. IN NO ACUTE DISTRESS NOTED. RESPIRATORY EVEN AND UNLABORED IN ROOM AIR. SKIN IS WARM TO TOUCH, KEEP CLEAN/DRY. KEPT ELEVATED HOB FOR ENSURE AIRWAY AND ASPIRATION PRECAUTION, ALSO LOWEST POSITION OF THE BED, S/R UP X 3, BED ALARM IS ON AT ALL THE TIMES. ALL SAFETY PRECAUTION APPLIED. CALL LIGHT WITHIN REACH, WILL CONTINUE TO MONITOR.
[2022-04-27 08:00] VITALS: BP 144/77
[2022-04-27] MEDS: PANTOPRAZOLE 40 MG TABLET.DR PO SCH (09:26)
[2022-04-27] MEDS: GLUCERNA SHAKE 237 ML CAN PO SCH ×2 (09:27→17:17)
--- NOTE | 2022-04-27 10:00 | NUR ---
PATIENT PLATELET LEVEL IS 77, HEALTHCARE NETWORK CONSULTANT/ARIANNA MADE AWARE WHO SAID "OKAY TO GIVE IT LOVENOX." WILL ADMINISTER LOVENOX.
[2022-04-27] MEDS: ENOXAPARIN SODIUM 40 MG/0.4 ML DISP.SYRIN SQ SCH (11:04)
--- NOTE | 2022-04-27 11:56 | NUR ---
PATIENT REFUSED ROBAXIN BUT WANTS DILAUDID STATED "NO, I DON'T WANT TO ROBAXIN, I WANT TO SHOT!" WILL INFORM MD, AND CONTINUE TO MONITOR.
[2022-04-27] MEDS ORDERED: METH500T6 PO (13:15)
[2022-04-27] MEDS ORDERED: LEVO250T59 PO (13:15)
[2022-04-27] MEDS ORDERED: OXYC1TAB8 PO (13:15)
[2022-04-27] MEDS ORDERED: ENOX40DI SQ (13:15)
[2022-04-27] MEDS: METOCLOPRAMIDE HCL 10 MG/2 ML VIAL IV PRN (13:42)
[2022-04-27] MEDS: LEVOFLOXACIN (250MG) 250 MG TABLET PO SCH (13:43)
--- NOTE | 2022-04-27 14:50 | NUR ---
PATIENT REFUSED DISCHARGE TO REHAB, WANTS D/C TO HOME WITH HOME HEALTH AND CAREGIVER. PATIENT REQUESTED DILAUDID BEFORE DISCHARGE, HOWEVER, MEDICATION WAS NOT AVAILABLE DUE TO TOO SOON SCHEDULE. THE PATIENT STARTED SHAVELING, ASKED PAIN MEDICATION PERSISTENTLY. HER SISTER ASKED CN TO STAY TONIGHT AND D/C TO SNF INSTEAD OF D/C HOME. MD AND CM MADE AWARE REGARDING ABOVE ISSUE. PATIENT REFUSED CLEAN/CHANGE LINES. PATIENT IS IN BED, NO FURTHER SHAVELING, AND IN NO CUTE DISTRESS OBSERVED. CALL LIGHT WITHIN REACH, WILL ENDORSE MUSIC CATALOGUER.
--- NOTE | 2022-04-27 19:30 | NUR ---
RECEIVED PATIENT IN BED, AWAKE, ALERT AND ORIENTED WITH SISTER AND FRIEND AT BEDSIDE. ABLE TO MAKE NEEDS KNOWN. AFEBRILE AND NOT IN ANY FORM OF ACUTE DISTRESS. BREATHING EVEN AND NON LABORED. NO C/O PAIN OR DISCOMFORT AT THIS TIME. SAFETY MEASURES IN PLACE. KEPT BED IN LOCKED AND IN LOW POSITION TO REDUCE INJURY. SIDE RAILS UP X2. ADVISED TO USE THE CALL LIGHT WHEN IN NEED OF ASSISTANCE.
[2022-04-27 20:00] VITALS: BP 123/64
[2022-04-28] MEDS: METHOCARBAMOL (500MG) 500 MG TABLET PO SCH ×2 (00:12→05:32)
[2022-04-28] MEDS: oxyCODONE/APAP (5/325 MG) 1 UDTAB TABLET PO PRN ×3 (03:16→09:36)
[2022-04-28] MEDS: BLOOD SUGAR DIAGNOSTIC 1 EACH STRIP IN SCH (05:42)
--- NOTE | 2022-04-28 07:04 | NUR ---
RN CLOSING NOTE PATIENT IN BED, ASLEEP BUT EASY TO AROUSE AND RESPONSIVE. ABLE TO COMMUNICATE NEEDS WITH THE STAFFS. AFEBRILE AND NOT IN ANY FORM OF ACUTE DISTRESS. BREATHING EVEN AND NON LABORED. WITH IV ACCESS ON LEFT AC 20G. MONITORED FOR ANY S/SX. OF HYPO/HYPERGLYCEMIA. MEDICATED ORDERED. OFFERED AND ENCOURAGED FLUIDS TOLERATED. SAFETY MEASURES IN PLACE. KEPT BED IN LOCKED AND IN LOW POSITION TO REDUCE INJURY. SIDE RAILS UP X2. ADVISED TO USE THE CALL LIGHT WHEN IN NEED OF ASSISTANCE. CONSTANT VISUAL CHECK DONE TO ENSURE SAFETY. ALL NURSING NEEDS ATTENDED.
--- NOTE | 2022-04-28 07:08 | NUR ---
MS RN OPENING NOTES RECEIVED PATIENT RESTING IN BED, A/Ox4 ABLE TO MAKE NEEDS KNOWN. ON ROOM AIR, NO S/S OF RESPIRATORY DISTRESS OR DISCOMFORT. IV ACCESS ON LAC #20 SL. INTACT AND PATENT. PATIENT IS CONTINENT USES BEDSIDE COMMODE. PATIENT HAS R HIP INCISION. PATIENT COMPLAINED OF PAIN, PRN OXYCODONE ADMINISTERED. SAFETY MEASURES IN PLACE: BED LOCKED AND IN LOWEST POSITION, SIDE RAILS UP x2, CALL LIGHT WITHIN REACH, HOB ELEVATED. WILL CONTINUE TO MONITOR.
[2022-04-28] MEDS: PANTOPRAZOLE 40 MG TABLET.DR PO SCH (07:50)
[2022-04-28] MEDS: GLUCERNA SHAKE 237 ML CAN PO SCH (07:51)
[2022-04-28 08:00] VITALS: BP 145/75
[2022-04-28] MEDS: ENOXAPARIN SODIUM 40 MG/0.4 ML DISP.SYRIN SQ SCH (09:35)
[2022-04-28] MEDS ORDERED: LORAZEPAM INJ 2 MG/ML VIAL IV PRN (16:00)
--- NOTE | 2022-04-28 16:42 | NUR ---
PIECE MEAT TRIMMER NOTES PATIENT DISCHARGE HOME WITH [facility], A/Patricia4, ABLE TO VERBALIZE NEEDS. STABLE ON ROOM AIR, NO COMPLAINT OF RESPIRATORY DISTRESS. ALL HEALTH TEACHINGS AND DISCHARGE INSTRUCTIONS GIVEN AND EXPLAINED TO PATIENT AND FAMILY. VERBALIZED UNDERSTANDING. ALL FORMS SIGNED AND FILED INTO CHART FROM YESTERDAY'S DISCHARGE. PATIENT WAS GIVEN ALL INFORMATION FOR FOLLOW UP WITH DR. SOLIS AND DR. ZARAGOZA. IV ACCESS REMOVED AND PRESSURE DRESSING APPLIED. ID BANDS REMOVED. PATIENT LEFT UNIT VIA WHEELCHAIR ACCOMPANIED BY RN, MARITA @1140. PATIENT LEFT VIA PRIVATE CAR WITH SISTER. CHARGE NURSE AND MD AWARE OF DISCHARGE.
== END 2022-04-28 11:40 | disposition home health service (06) | DRG 308 ==
LOC: EDBD 16:23 → ER 16:23 → TRANSITION 22:17 → MED 04-23 07:47
PROVIDERS: ADMIT Nurse Practitioner Family; ATTEND Registered Nurse
PROC: 0QS634Z Reposition Right Upper Femur with Internal Fixation Device, Percutaneous Approach (ICD-10-PCS; principal; 2022-04-24)
DX: S72.001A Fracture of unspecified part of neck of right femur, initial encounter for closed fracture (principal); J15.9 Unspecified bacterial pneumonia; E11.40 Type 2 diabetes mellitus with diabetic neuropathy, unspecified; G89.4 Chronic pain syndrome; F17.200 Nicotine dependence, unspecified, uncomplicated; W19.XXXA Unspecified fall, initial encounter; Z20.822 Contact with and (suspected) exposure to COVID-19; I10 Essential (primary) hypertension; Z79.84 Long term (current) use of oral hypoglycemic drugs; Z79.4 Long term (current) use of insulin; M51.36 Other intervertebral disc degeneration, lumbar region; Y92.9 Unspecified place or not applicable
CPT/HCPCS: 36415; 71045-TC; 73501; 73502; 73700-TC; 80048-TC; 80053-TC; 80061-TC; 81001; 82728-TC; 82962-TC; 83540-TC; 83735-TC; 84100-TC; 84443-TC; 84484-TC; 85025-TC; 85610-TC; 85730-TC; 86850-TC; 87081-TC; 93970-TC; 97112-TC; 97116-TC; 97164; 97530-TC; A6209; A6253; C1713; C1769; C9803; G0378; J0360; J0690; J1170; J1650; J1815; J2175; J2250; J2270; J2405; J2704; J2765; J3010; J3475; J3490; J7030; J7060; J7120

== ENCOUNTER 2022-05-07 12:47 | Emergency (ER) | payer MEDICAID ==
[~2022-05-07] VITALS: Ht 160 cm; Wt 63.5 kg
[~2022-05-07 12:47] MED LIST: ENOX40DI SQ; GABA-532 PO; INSU100I26 SQ; LEVO250T59 PO; METF-440 PO; METH500T6 PO; OXYC1TAB8 PO
--- NOTE | 2022-05-07 13:00 | NUR ---
BIB FAMILY W/ C/O R HIP PAIN SINCE THURSDAY. SENT BY DR SOLIS R/O DVT RECENT HIP SURGERY 04/27/22. TO ER BED 10.
--- NOTE | 2022-05-07 14:43 | NUR ---
Patient discharged to home in stable condition. Written and verbal after care instructions given. Patient verbalizes understanding of instruction.
[2022-05-07 14:44] VITALS: BP 116/63
== END 2022-05-07 14:44 | disposition home or self-care (01) ==
LOC: ER 12:57
DX: G89.18 Other acute postprocedural pain (principal); M25.551 Pain in right hip; M79.604 Pain in right leg; M79.89 Other specified soft tissue disorders; I10 Essential (primary) hypertension; E11.9 Type 2 diabetes mellitus without complications; Z79.899 Other long term (current) drug therapy
CPT/HCPCS: 93971-TC

== ENCOUNTER 2022-05-16 11:47 | Emergency (ER) | payer MEDICAID ==
[~2022-05-16] VITALS: Ht 157.5 cm; Wt 51.3 kg
[2022-05-16] MEDS ORDERED: KETOROLAC TROMETHAMINE INJ 30 MG/ML VIAL IM ONE (13:00)
--- NOTE | 2022-05-16 13:00 | NUR ---
TAKEN TO CT VIA KEANU
[2022-05-16] MEDS ORDERED: KETOROLAC TROMETHAMINE INJ 30 MG/ML VIAL ONE (13:02)
[2022-05-16] MEDS ORDERED: HYDROCODONE/APAP 5/325MG TABLET ONE (14:10)
[2022-05-16] MEDS ORDERED: HYDROCODONE/APAP 5/325MG TABLET PO ONE (14:30)
[2022-05-16 14:32] VITALS: BP 136/68
--- NOTE | 2022-05-16 15:30 | NUR ---
IV removed. Catheter intact and site benign. Pressure and 4x4 applied to site. No bleeding noted.Patient discharged to home in stable condition. Written and verbal after care instructions given. Patient verbalizes understanding of instruction.
--- NOTE | 2022-05-16 15:33 | NUR ---
DANDRE REQUESTED A CAB TO BE CALLED AND SHE/'LL PAY IT WHEN SHE GETS HOME. ASSISTED VIA WHEELCHAIR TO THE WAITING ROOM.
== END 2022-05-16 14:33 | disposition home or self-care (01) ==
LOC: ER 11:49
DX: M25.551 Pain in right hip (principal); R51.9 Headache, unspecified; M54.2 Cervicalgia; I10 Essential (primary) hypertension; E11.9 Type 2 diabetes mellitus without complications
CPT/HCPCS: 99284; 72125; 71045; 96372; 73502; 70450; J1885

== ENCOUNTER 2022-05-18 12:55 | Inpatient (IN) | payer MEDICAID ==
[~2022-05-18] VITALS: Ht 170.2 cm; Wt 54.4 kg
[2022-05-18] MEDS: INSULIN GLARGINE, 100 UNIT/ML CARTRIDGE SQ SCH
--- NOTE | 2022-05-18 15:00 | NUR ---
LEFT FOREARM #20 G SALINE LOCK ESTABLISHED
[2022-05-18] MEDS ORDERED: KETOROLAC TROMETHAMINE 15 MG/ML VIAL ONE (15:17)
[2022-05-18 15:25] LABS: BASOPHILS % (AUTO) 0.2 % (0.0-2.0); HEMATOCRIT 37 % (33-45); HEMOGLOBIN 11.6 g/dL (11.5-14.8); LYMPHOCYTES # (AUTO) 1.3 K/uL (0.8-4.8); LYMPHOCYTES % (AUTO) 17.9 % (20.0-44.0); MEAN CORPUSCULAR HGB CONC 31 g/dl (31.0-36.0); MEAN CORPUSCULAR VOLUME 76 fL (82-100); MONOCYTES # (AUTO) 0.3 K/uL (0.1-1.30); MONOCYTES % (AUTO) 4.4 % (2.0-12.0); NEUTROPHILS # (AUTO) 5.6 K/uL (1.8-8.9); NEUTROPHILS % (AUTO) 77.5 % (43.0-81.0); PLATELET COUNT (AUTO) 124 K/uL (150-450); RED BLOOD CELL COUNT(AUTO) 4.85 MIL/uL (4.0-5.2); WHITE BLOOD COUNT (AUTO) 7.2 K/uL (4.3-11.0)
[2022-05-18] MEDS ORDERED: KETOROLAC TROMETHAMINE INJ 30 MG/ML VIAL IV ONE (15:30)
--- NOTE | 2022-05-18 15:31 | NUR ---
SISTER INDRA LEFT [phone]
[2022-05-18 15:55] LABS: ALBUMIN 3.3 g/dL (3.4-5.0); BILIRUBIN,TOTAL 1.5 mg/dL (0.2-1.0); CALCIUM, SERUM 8.6 mg/dL (8.5-10.1); CREATININE 0.6 mg/dL (0.6-1.3); POTASSIUM 3.4 mmol/L (3.5-5.1); TOTAL PROTEIN, SERUM 8.4 g/dL (6.4-8.2)
[2022-05-18 16:08] LABS: BILIRUBIN,DIRECT 0.9 mg/dL (0.0-0.2)
--- NOTE | 2022-05-18 16:12 | NUR ---
PATIENT SISTER INDRA STATED PATIENT IS POSITIVE FOR HEPATITIS C Addendum: 05/18/22 at 1613 by ANAID MD CHILDRESS
--- NOTE | 2022-05-18 16:27 | NUR ---
MOVE SHEET SUBMITTED
--- NOTE | 2022-05-18 16:47 | NUR ---
COVID SWAB OBTAINED AND PLACED IN DROP-OFF BOX
[2022-05-18] MEDS ORDERED: ONDANSETRON HCL/PF 4 MG/2 ML VIAL ONE ×2 (16:57→20:03)
[2022-05-18] MEDS ORDERED: ONDANSETRON HCL/PF 4 MG/2 ML VIAL IV ONE (17:00)
[2022-05-18] MEDS ORDERED: IV NS 0.9% 1,000 ML BAG IV ONE (17:30)
--- NOTE | 2022-05-18 17:30 | NUR ---
EPIC PAGED, AWAITING HOSPITALIST CALL BACK.
[2022-05-18] MEDS ORDERED: DEXTROSE 50%-WATER 50 ML DISP.SYRIN IV PRN (18:00)
[2022-05-18] MEDS ORDERED: hydrALAZINE HCL IV 20 MG VIAL IV PRN (18:00)
[2022-05-18] MEDS ORDERED: Z GUARD REMEDY 4 OZ OINT TP PRN (18:00)
[2022-05-18] MEDS ORDERED: ACETAMINOPHEN 325 MG TABLET PO PRN (18:00)
--- NOTE | 2022-05-18 18:03 | NUR ---
PATIENT VITAL SIGNS BP 200/90, HR 118. MADE AWARE. Addendum: 05/18/22 at 1822 by ANAID PRN MORPHINE 2 MG IVP AND HYDRALAZINE 20 MG IVP ADMINISTERED ORDERED
[2022-05-18] MEDS ORDERED: MORPHINE SULFATE INJ 2 MG/ML DISP.SYRIN ONE (18:07)
[2022-05-18] MEDS ORDERED: ENOXAPARIN SODIUM 40 MG/0.4 ML DISP.SYRIN SQ ONE (18:07)
[2022-05-18] MEDS ORDERED: hydrALAZINE HCL IV 20 MG VIAL ONE (18:07)
[2022-05-18] MEDS: MORPHINE SULFATE INJ 2 MG/ML DISP.SYRIN IV PRN (18:17)
[2022-05-18] MEDS: ENOXAPARIN SODIUM 40 MG/0.4 ML DISP.SYRIN SQ SCH (18:19)
[2022-05-18] MEDS: IV NS 0.9% 1,000 ML IV SCH (18:19)
[2022-05-18] MEDS: BLOOD SUGAR DIAGNOSTIC 1 EACH STRIP IN SCH ×2 (18:23→22:30)
[2022-05-18] MEDS ORDERED: CHLORDIAZEPOXIDE HCL 25 MG CAPSULE ONE (18:25)
[2022-05-18] MEDS: CHLORDIAZEPOXIDE HCL 25 MG CAPSULE PO SCH (18:27)
--- NOTE | 2022-05-18 18:30 | NUR ---
PATIENT POC GLUCOSE 214 mg/dL. MADE AWARE.
[2022-05-18] MEDS ORDERED: PROCHLORPERAZINE EDISYLATE 10 MG/2 ML VIAL ONE (18:46)
[2022-05-18] MEDS ORDERED: PROCHLORPERAZINE EDISYLATE 10 MG/2 ML VIAL IM ONE (19:00)
[2022-05-18 19:51] LABS: EOSINOPHILS % (MANUAL) 2 % (0-4); LYMPHOCYTES % (MANUAL) 17 % (16-48); MONOCYTES % (MANUAL) 6 % (0-11.0); NEUTROPHILS % (MANUAL) 75 (42-76)
[2022-05-18] MEDS ORDERED: LORAZEPAM INJ 2 MG/ML VIAL ONE (20:04)
[2022-05-18] MEDS: LORAZEPAM INJ 2 MG/ML VIAL IV PRN (20:10)
[2022-05-18] MEDS: ONDANSETRON HCL/PF 4 MG/2 ML VIAL IVP PRN (20:10)
[2022-05-19] MEDS ORDERED: METHOCARBAMOL (500MG) 500 MG TABLET PO SCH
[2022-05-19] MEDS: MORPHINE SULFATE INJ 2 MG/ML DISP.SYRIN IV PRN ×3 (00:07→17:09)
[2022-05-19] MEDS ORDERED: ONDANSETRON HCL/PF 4 MG/2 ML VIAL ONE (01:48)
[2022-05-19] MEDS ORDERED: ACETAMINOPHEN 325 MG TABLET ONE (01:48)
[2022-05-19] MEDS: ONDANSETRON HCL/PF 4 MG/2 ML VIAL IVP PRN ×2 (01:52→11:33)
[2022-05-19] MEDS ORDERED: LORAZEPAM INJ 2 MG/ML VIAL ONE (03:04)
[2022-05-19] MEDS: LORAZEPAM INJ 2 MG/ML VIAL IV PRN ×3 (03:09→20:28)
[2022-05-19 05:52] LABS: BASOPHILS % (AUTO) 0.4 % (0.0-2.0); HEMATOCRIT 34 % (33-45); HEMOGLOBIN 10.7 g/dL (11.5-14.8); LYMPHOCYTES # (AUTO) 1.4 K/uL (0.8-4.8); LYMPHOCYTES % (AUTO) 18.4 % (20.0-44.0); MEAN CORPUSCULAR HGB CONC 32 g/dl (31.0-36.0); MEAN CORPUSCULAR VOLUME 77 fL (82-100); MONOCYTES # (AUTO) 1.1 K/uL (0.1-1.30); MONOCYTES % (AUTO) 14.4 % (2.0-12.0); NEUTROPHILS # (AUTO) 4.9 K/uL (1.8-8.9); NEUTROPHILS % (AUTO) 66.8 % (43.0-81.0); PLATELET COUNT (AUTO) 108 K/uL (150-450); RED BLOOD CELL COUNT(AUTO) 4.43 MIL/uL (4.0-5.2); WHITE BLOOD COUNT (AUTO) 7.4 K/uL (4.3-11.0)
[2022-05-19 06:26] LABS: ALBUMIN 3.1 g/dL (3.4-5.0); BILIRUBIN,TOTAL 1.8 mg/dL (0.2-1.0); CALCIUM, SERUM 8.6 mg/dL (8.5-10.1); CREATININE 0.7 mg/dL (0.6-1.3); MAGNESIUM 1.7 mg/dL (1.8-2.4); PHOSPHORUS 2.3 mg/dL (2.5-4.9); POTASSIUM 3.8 mmol/L (3.5-5.1); TOTAL PROTEIN, SERUM 7.8 g/dL (6.4-8.2)
[2022-05-19] MEDS: BLOOD SUGAR DIAGNOSTIC 1 EACH STRIP IN SCH ×4 (07:30→22:47)
[2022-05-19] MEDS: IV NS 0.9% 1,000 ML IV SCH (07:53)
[2022-05-19] MEDS ORDERED: MORPHINE SULFATE INJ 2 MG/ML DISP.SYRIN ONE ×2 (07:59)
[2022-05-19] MEDS ORDERED: CHLORDIAZEPOXIDE HCL 25 MG CAPSULE ONE (08:27)
[2022-05-19] MEDS ORDERED: GABAPENTIN 300 MG CAPSULE ONE (08:27)
[2022-05-19] MEDS: GABAPENTIN 100 MG CAPSULE PO SCH ×3 (08:30→16:58)
[2022-05-19] MEDS: CHLORDIAZEPOXIDE HCL 25 MG CAPSULE PO SCH ×3 (08:30→16:58)
--- NOTE | 2022-05-19 08:41 | NUR ---
ROOM 307-2
[2022-05-19] MEDS ORDERED: ASPI-1169 PO (08:46)
--- NOTE | 2022-05-19 08:54 | NUR ---
PT REPORT GIVEN TO CLAUDIA LESLIE
--- NOTE | 2022-05-19 09:02 | NUR ---
PT TRANSFERRED TO [facility] VIA GURNEY. WARM HANDOFF GIVEN TO RN ASSIGNED.
[2022-05-19] MEDS ORDERED: MAGNESIUM OXIDE 400 MG TABLET PO ONE (10:00)
[2022-05-19] MEDS ORDERED: K PHOS NEUTRAL 250 MG TABLET PO ONE (10:00)
[2022-05-19 12:00] VITALS: BP 165/85
[2022-05-19] MEDS: INSULIN REGULAR, HUMAN 100 UNIT/ML 3 ML VIAL SQ PRN ×3 (13:14→22:49)
[2022-05-19 16:00] VITALS: BP 160/94
--- NOTE | 2022-05-19 16:26 | NUR ---
SS consult requested by family. SW will follow up at a later time.
[2022-05-19] MEDS: ENOXAPARIN SODIUM 40 MG/0.4 ML DISP.SYRIN SQ SCH (16:59)
--- NOTE | 2022-05-19 19:36 | NUR ---
RN CLOSING NOTE PATIENT BROUGHT TO UNIT FROM ER VIA GURNEY. TRANSFERRED TO BED WITH 2 PERSON ASSIST. PATIENT A/OX 3 AND ABLE TO VERBALIZE ALL NEEDS. PATIENT PRESENTS VERY WEAK AND LETHARGIC. IV ACCESS TO R HAND INTACT AND PATENT. SKIN APPEARS INTACT. PATIENT C/O PAIN TO RIGHT HIP; RECEIVED PRN MORPHINE VIA IV PUSH. MEDICATION EFFECTIVE AND TOLERATED WELL. PATIENT ALSO C/O NAUSEA AND ANXIETY. RECEIVED ZOFRAN AND ATIVAN BOTH VIA IV PUSH; BOTH MEDICATIONS EFFECTIVE AND TOLERATED WELL. BLOOD SUGAR LEVELS ON SHIFT SLIGHTLY ELEVATED @ 261 (6UNITS INSULIN COVERAGE) & 187 (3UNITS INSULIN COVERAGE. PATIENT TOLERATED BOTH DOSES WELL. OBSERVED SLEEPING MAJORITY OF SHIFT, SHE STATED " I JUST REALLY NEED A LOT OF REST, IM EXHAUSTED". NO S/SX OF DISTRESS OBSERVED OR REPORTED. SAFETY MEASURES INTACT WITH BED LOW AND LOCKED. CALL LIGHT WITHIN REACH. WILL CONT TO MONITOR.
--- NOTE | 2022-05-19 19:45 | NUR ---
MS RN OPENING NOTE RECEIVED PATIENT SLEEPING IN BED. PT A/O X3, ABLE TO MAKE NEEDS KNOWN. PT STABLE ON ROOM AIR. NO SOB OR RESPIRATORY DISTRESS. BREATHING EVEN AND UNLABORED. IV ACCESS TO RIGHT HAND 20G, INTACT AND PATENT. SAFETY PRECAUTIONS IN PLACE. BED IN LOWEST LOCKED POSITION, HOB ELEVATED, SIDE RAILS UP X2, AND CALL LIGHT AND TABLE WITHIN REACH. WILL CONTINUE TO MONITOR PT.
[2022-05-19 20:00] VITALS: BP 150/95
--- NOTE | 2022-05-19 20:30 | NUR ---
MS RN NOTE PT REQUESTED ATIVAN FOR RESTLESSNESS. TRIED TO GIVE PT ATIVAN BUT PT IV ACCESS IS DISLODGED. UNABLE TO INSERT IV. CHARGE NURSE IS INFORMED.
[2022-05-19] MEDS: INSULIN GLARGINE, 100 UNIT/ML CARTRIDGE SQ SCH (22:51)
[2022-05-20] MEDS: LORAZEPAM INJ 2 MG/ML VIAL IV PRN ×3 (01:47→23:17)
--- NOTE | 2022-05-20 01:50 | NUR ---
MS RN NOTE NEW IV ACCESS INSERTED BY CHARGE NURSE CARRINGTON. ATIVAN ADMINISTERED TO PT NOW.
[2022-05-20] MEDS: MORPHINE SULFATE INJ 2 MG/ML DISP.SYRIN IV PRN ×2 (05:00→09:03)
[2022-05-20] MEDS: ONDANSETRON HCL/PF 4 MG/2 ML VIAL IVP PRN (05:09)
[2022-05-20 06:45] LABS: MAGNESIUM 1.7 mg/dL (1.8-2.4)
--- NOTE | 2022-05-20 07:05 | NUR ---
MS RN CLOSING NOTE LEFT PATIENT SLEEPING IN BED, EASY TO AROUSE. PT A/O X3, ABLE TO MAKE NEEDS KNOWN. PT STABLE ON ROOM AIR. NO SOB OR RESPIRATORY DISTRESS NOTED. BREATHING EVEN AND UNLABORED. IV ACCESS TO LEFT WRIST 22G, INTACT AND PATENT. SAFETY PRECAUTIONS IN PLACE. BED IN LOWEST LOCKED POSITION, HOB ELEVATED, SIDE RAILS UP X3, AND CALL LIGHT AND TABLE WITHIN REACH. WILL ENDORSE TO AM SHIFT NURSE FOR ROHAN.
--- NOTE | 2022-05-20 07:10 | NUR ---
MS RN OPENING NOTES RECEIVED PATIENT SLEEPING IN BED, A/Ox3 ABLE TO MAKE NEEDS KNOWN. ON ROOM AIR, NO S/S OF RESPIRATORY DISTRESS. PATENT IS CONTINENT USES BEDPAN AND BEDSIDE COMMODE. IV ACCES L WRIST #22G S/L, INTACT AND PATENT. SKIN INTACT. NO S/S OF PAIN OR DISCOMFORT. SAFETY MEASURES IN PLACE: BED LOCKED AND IN LOWEST POSITION, SIDE RAILS UPx2, CALL LIGHT WITHIN REACH, HOB ELEVATED. WILL CONTINUE TO MONITOR.
[2022-05-20] MEDS: INSULIN REGULAR, HUMAN 100 UNIT/ML 3 ML VIAL SQ PRN ×4 (07:12→23:42)
[2022-05-20] MEDS: BLOOD SUGAR DIAGNOSTIC 1 EACH STRIP IN SCH ×4 (07:42→23:39)
[2022-05-20 08:00] VITALS: BP 165/84
[2022-05-20] MEDS: GABAPENTIN 100 MG CAPSULE PO SCH ×3 (09:01→17:08)
[2022-05-20] MEDS: CHLORDIAZEPOXIDE HCL 25 MG CAPSULE PO SCH (09:01)
--- NOTE | 2022-05-20 09:30 | NUR ---
RN NOTES PATIENT REQUESTING PRN ATIVAN AND PRN MORPHINE FOR PAIN AND ANXIETY. PRN MEDICATION ADMINISTERED. WILL CONTINUE TO MONITOR.
[2022-05-20] MEDS ORDERED: Magnesium 1GM/D5W 100ML PREMIX 100 ML IV SCH (10:00)
[2022-05-20] MEDS ORDERED: MAGNESIUM OXIDE 400 MG TABLET PO ONE (10:00)
--- NOTE | 2022-05-20 13:30 | NUR ---
RN NOTES PATIENT GIVEN INSULIN COVERAGE AND AFTERNOON MEDICATION, PATIENT WENT BACK TO SLEEP AFTERWARDS. ALL NEEDS ATTENDED TO AT THIS TIME.
--- NOTE | 2022-05-20 15:34 | NUR ---
SS consult: SS requested for pt.'s self neglect. MILO spoke to the pts,' daughter, Calli [phone] who states that pt. refuses rehab placement even after hip surgery and is living with "random people". Per Calli, the pt. just met friendRonna tel: [phone] who introduces herself as pt.'s sister. Per Calli pt. refuses to involve her and pt.'s other daughter in her healthcare and discharge planning. Per Calli, the pt. has "always battled with drug & alcohol addiction" and still does. Pt. was seen by psychiatrist, Dr. Briseno to determine if pt. has capacity to consent. MILO spoke with Dr. Briseno who stated the pt. does have capacity to consent on healthcare & DC plans and pt. can decide where she would like to discharge to. MILO discussed with pt.'s daughter, Calli who expressed understanding. MILO lso discussed this with Nuris MORSE and Treva TORREZ. Per Treva the pt. stated she would like to discharge to self and her friend, Ronna tel: [phone] may be able to pick her up today. MILO completed APS REPORT # [id number] FOR SELF-NEGLECT.MILO will be available as needed.
[2022-05-20 16:00] VITALS: BP 123/71
[2022-05-20] MEDS: ENOXAPARIN SODIUM 40 MG/0.4 ML DISP.SYRIN SQ SCH (17:10)
--- NOTE | 2022-05-20 17:30 | NUR ---
RN NOTES SPOKE TO DAUGHTER AMELIA, DAUGHTER STATED THAT "SISTER" INDRA IS NOT RELATED TO PATIENT BUT INSTEAD SOMEONE WHO PATIENT CALLS HER SISTER. DAUGHTER STATED THAT FAR SHE KNEW INDRA IS OUT OF STATE IN [place] AND NOT CURRENTLY HERE. CHARGE NURSE AWARE. WILL CONTINUE TO MONITOR.
--- NOTE | 2022-05-20 18:44 | NUR ---
MS RN CLOSING NOTES PATIENT SLEEPING IN BED, A/Ox3 ABLE TO MAKE NEEDS KNOWN. STABLE ON ROOM AIR, NO S/S OF RESPIRATORY DISTRESS. PATENT IS CONTINENT USES BEDPAN AND BEDSIDE COMMODE. IV ACCES L WRIST #22G S/L, INTACT AND PATENT. SKIN INTACT. NO S/S OF PAIN OR DISCOMFORT. SAFETY MEASURES MAINTAINED: BED LOCKED AND IN LOWEST POSITION, SIDE RAILS UPx2, CALL LIGHT WITHIN REACH, HOB ELEVATED. WILL ENDORSE TO NEXT SHIFT ANY ROHAN.
--- NOTE | 2022-05-20 19:45 | NUR ---
MSRN ASLEEP, APPEARS COMFORTABLE. MISSED DINNER
[2022-05-20 20:00] VITALS: BP 138/71
[2022-05-20 21:00] VITALS: BP 138/71
--- NOTE | 2022-05-20 23:15 | NUR ---
MSRN FEELING RESTLESS AND AGITATED, INSISTED ATIVAN, ADMINISTERED IVP ORDERED. NO DUE PO MEDS. BEDREST EMPHASIZED. KEPT COMFORTABLE.
[2022-05-20] MEDS: INSULIN GLARGINE, 100 UNIT/ML CARTRIDGE SQ SCH (23:40)
--- NOTE | 2022-05-20 23:45 | NUR ---
MSRN REFUSED INSULIN COVERAGE WELL LANTUS. STATED NO APPETITE TO EAT JUST HAD TEA. BS WAS 214. OFFERED OTHER SNACKS DECLINED. STATED WILL GO HOME IN AM. HAS DC ORDER BUT NOBODY TO PICK HER UP. SISTER PATIENT WAS CLAIMING LIVES IN [place].
[2022-05-21] MEDS: MORPHINE SULFATE INJ 2 MG/ML DISP.SYRIN IV PRN ×4 (03:35→20:33)
--- NOTE | 2022-05-21 03:42 | NUR ---
RN NOTES RN NURSE BLANCO BUSY WITH THE OTHER PATIENT , PATIENT COMPLAINS OF SEVERE PAIN 01/22. PRN MORPHINE GIVEN ORDERED AT 0335 AM.
--- NOTE | 2022-05-21 06:50 | NUR ---
MSRN BS 274, WANTED COVERAGE AFTER BREAKFAST. WILL ENDORSE TO INCOMING RN. AM CARE DONE.
[2022-05-21] MEDS: BLOOD SUGAR DIAGNOSTIC 1 EACH STRIP IN SCH ×4 (07:45→22:46)
[2022-05-21 08:00] VITALS: BP 154/83
[2022-05-21] MEDS: GABAPENTIN 100 MG CAPSULE PO SCH ×3 (10:18→17:30)
[2022-05-21] MEDS: INSULIN REGULAR, HUMAN 100 UNIT/ML 3 ML VIAL SQ PRN ×3 (15:10→22:54)
[2022-05-21 16:00] VITALS: BP 148/73
[2022-05-21] MEDS: LORAZEPAM INJ 2 MG/ML VIAL IV PRN ×2 (17:31→23:34)
[2022-05-21] MEDS: GLUCERNA SHAKE 237 ML CAN PO SCH (17:42)
[2022-05-21] MEDS: ENOXAPARIN SODIUM 40 MG/0.4 ML DISP.SYRIN SQ SCH (17:58)
[2022-05-21 18:06] LABS: CALCIUM, SERUM 8.6 mg/dL (8.5-10.1); CREATININE 0.7 mg/dL (0.6-1.3); POTASSIUM 3.6 mmol/L (3.5-5.1)
--- NOTE | 2022-05-21 19:20 | NUR ---
MS RN OPENING NOTES RECEIVED PATIENT SLEEPING IN BED, A/Ox3 ABLE TO MAKE NEEDS KNOWN. ON ROOM AIR, NO S/S OF RESPIRATORY DISTRESS. PATENT IS CONTINENT USES BEDPAN AND BEDSIDE COMMODE. IV ACCES L WRIST #22G SL, INTACT AND PATENT. C/O OF 9/10 PAIN. WILL PROVIDE DUE MORPHINE 2MG AND REASSESS. SKIN INTACT. SAFETY MEASURES IN PLACE: BED LOCKED AND IN LOWEST POSITION, SIDE RAILS UPx2, CALL LIGHT WITHIN REACH, HOB ELEVATED. WILL CONTINUE TO MONITOR AND ASSIST.
[2022-05-21 20:00] VITALS: BP 157/87
[2022-05-21] MEDS: INSULIN GLARGINE, 100 UNIT/ML CARTRIDGE SQ SCH (22:55)
--- NOTE | 2022-05-22 00:15 | NUR ---
RN NOTE PT C/O OF BREAKTHROUGH PAIN EVEN AFTER MORPHINE 2MG ADMIN. DR NEERAJ CHIANG INFORMED AND ORDERED DILAUDID 1MG IV x1. WILL ADMINISTER PRESCRIBED.
[2022-05-22] MEDS: MORPHINE SULFATE INJ 2 MG/ML DISP.SYRIN IV PRN ×4 (00:32→13:44)
[2022-05-22] MEDS ORDERED: HYDROMORPHONE 1 MG/1 ML DISP.SYRIN IV PRN (01:30)
--- NOTE | 2022-05-22 03:00 | NUR ---
RN NOTE PT STATES DILAUDID EFFECTIVE FOR HER BREAKTHROUGH PAIN. WILL CONTINUE TO MONITOR AND ASSIST.
--- NOTE | 2022-05-22 07:15 | NUR ---
MS RN CLOSING NOTES PATIENT AWAKE IN BED AT THIS TIME, A/Ox3 ABLE TO MAKE NEEDS KNOWN. STABLE ON ROOM AIR WITH NO S/S OF RESPIRATORY DISTRESS. PATENT IS CONTINENT USES BEDPAN AND BEDSIDE COMMODE. IV ACCESS LAC #22G SL, INTACT AND PATENT. ALL CARE PROVIDED AND ADMINISTERED MEDICATIONS TOLERATED WELL. SKIN INTACT. SAFETY MEASURES MAINTAINED: BED LOCKED AND IN LOWEST POSITION, SIDE RAILS UPx2, CALL LIGHT WITHIN REACH, HOB ELEVATED. WILL ENDORSE ROHAN TO DAY SHIFT NURSE.
[2022-05-22] MEDS: BLOOD SUGAR DIAGNOSTIC 1 EACH STRIP IN SCH ×2 (07:30→12:00)
[2022-05-22] MEDS: LORAZEPAM INJ 2 MG/ML VIAL IV PRN (07:30)
[2022-05-22] MEDS: INSULIN REGULAR, HUMAN 100 UNIT/ML 3 ML VIAL SQ PRN ×2 (07:32→13:59)
[2022-05-22 08:26] VITALS: BP 148/79
[2022-05-22] MEDS: GLUCERNA SHAKE 237 ML CAN PO SCH (09:28)
[2022-05-22] MEDS: GABAPENTIN 100 MG CAPSULE PO SCH ×2 (09:29→13:43)
[2022-05-22 16:30] VITALS: BP 148/82
== END 2022-05-22 18:07 | DRG 421 ==
LOC: ER 12:57 → TRANSITION 17:54 → MED 05-19 08:49
PROVIDERS: ADMIT Internal Medicine
DX: R62.7 Adult failure to thrive (principal); D69.6 Thrombocytopenia, unspecified; E44.1 Mild protein-calorie malnutrition; R53.2 Functional quadriplegia; E88.09 Other disorders of plasma-protein metabolism, not elsewhere classified; Z20.822 Contact with and (suspected) exposure to COVID-19; E87.1 Hypo-osmolality and hyponatremia; E83.39 Other disorders of phosphorus metabolism; G89.18 Other acute postprocedural pain; F10.129 Alcohol abuse with intoxication, unspecified; Y90.7 Blood alcohol level of 200-239 mg/100 ml; G89.29 Other chronic pain; E11.65 Type 2 diabetes mellitus with hyperglycemia; Z98.890 Other specified postprocedural states; Z79.84 Long term (current) use of oral hypoglycemic drugs; Z79.4 Long term (current) use of insulin; E87.6 Hypokalemia; E83.42 Hypomagnesemia; I10 Essential (primary) hypertension; F17.200 Nicotine dependence, unspecified, uncomplicated
CPT/HCPCS: 36415; 73502; 80048-TC; 80053-TC; 80076-TC; 82962-TC; 83735-TC; 84100-TC; 85025-TC; 87081-TC; 97110-TC; 97530-TC; 97535-TC; G0378; G0480; J0360; J0780; J1170; J1650; J1815; J1885; J2060; J2270; J2405; J7030

== ENCOUNTER 2022-05-23 02:55 | Inpatient (IN) | payer MEDICAID ==
[~2022-05-23] VITALS: Ht 167.6 cm; Wt 51.7 kg
[~2022-05-23 02:55] MED LIST changes: +ASPI-1169 PO; -LEVO250T59 PO
--- NOTE | 2022-05-23 05:30 | NUR ---
MS SHOW GIRL NOTES RECEIVED DIRECT ADMIT FROM [facility].CAME BACK FROM PLACEMENT.ALERT,ORIENTED X4,BREATHING EVEN AND UNLABORED,WITH SALINE LOCK ON THE LEFT ARM INTACT AND PATENT.NO SKIN ISSUES.ABLE TO USE BEDSIDE COMMODE WITH MINIMUM ASSIST.VITAL SIGNS STABLE.CALL LIGHT IN REACH,NEEDS ANTICIPATED.
[2022-05-23] MEDS ORDERED: ACETAMINOPHEN 325 MG TABLET PO PRN (06:00)
[2022-05-23] MEDS ORDERED: MAGNESIUM HYDROXIDE 30 ML UDC PO PRN (06:00)
[2022-05-23] MEDS ORDERED: ZOLPIDEM TARTRATE 5 MG TABLET PO PRN (06:00)
[2022-05-23] MEDS ORDERED: oxyCODONE/APAP (5/325 MG) 1 UDTAB TABLET PO PRN (06:00)
[2022-05-23] MEDS ORDERED: ONDANSETRON HCL/PF 4 MG/2 ML VIAL IVP PRN (06:00)
[2022-05-23] MEDS ORDERED: MAG HYDROX/AL HYDROX/SIMETH 30 ML UDC PO PRN (06:00)
[2022-05-23] MEDS ORDERED: Z GUARD REMEDY 4 OZ OINT TP PRN (06:00)
[2022-05-23 06:12] VITALS: BP 158/74
[2022-05-23] MEDS: METHOCARBAMOL (500MG) 500 MG TABLET PO SCH ×4 (06:35→23:05)
[2022-05-23] MEDS: ENOXAPARIN SODIUM 40 MG/0.4 ML DISP.SYRIN SQ SCH (06:36)
[2022-05-23] MEDS: HYDROMORPHONE INJ 2 MG/ML DISP.SYRIN IV PRN ×4 (06:45→20:32)
--- NOTE | 2022-05-23 06:45 | NUR ---
MS RN NOTES PAIN MANAGEMENT C/O GENERALIZED PAIN,DILAUDID 1MG IV GIVEN ORDERED,VITAL SIGNS STABLE.
--- NOTE | 2022-05-23 07:19 | NUR ---
MS RN NOTES ON BED SLEEPING,PAIN MANAGEMENT EFFECTIVE.NO DISTRESS. ENDORSED TO CHANI FOR ROHAN.
--- NOTE | 2022-05-23 07:25 | NUR ---
MS RN OPENING NOTE RECEIVED PT ASLEEP IN BED, EASILY AROUSED. PT A/O X4, ABLE TO MAKE NEEDS KNOWN. PT ON ROOM AIR, TOLERATING WELL. NO SOB NOTED. NOT IN ANY SIGN OF RESPIRATORY DISTRESS. IV ACCESS IN LFA G#20, INTACT AND PATENT. SAFETY MEASURES IN PLACE: BED IN LOWEST AND LOCKED POSITION, BED RAILS UP X2, BED ALARM ON, AND CALL LIGHT WITHIN REACH. WILL CONTINUE TO MONITOR PT.
[2022-05-23 08:00] VITALS: BP 153/94
[2022-05-23] MEDS: GABAPENTIN 300 MG CAPSULE PO SCH ×3 (08:46→16:34)
[2022-05-23] MEDS: METFORMIN 500 MG TABLET PO SCH ×2 (08:46→16:34)
[2022-05-23] MEDS: ASPIRIN 81 MG TAB.CHEW PO SCH (08:46)
--- NOTE | 2022-05-23 11:18 | NUR ---
RN NOTE PT C/O GENERALIZED BODY PAIN WITH PAIN SCALE LEVEL OF 9/10 AND REQUESTED FOR DILAUDID MEDICATION. DILAUDID 1MG IVP GIVEN ORDERED Q4HRS PRN FOR SEVERE PAIN. WASTED PARTIAL DOSE WITNESSED BY CLAUDIA GARCIA. WILL MONITOR AND REASSESS PT.
--- NOTE | 2022-05-23 11:44 | NUR ---
MILO received the call from the APS worker, Garfield Nicholas [phone] who stated she was aware that pt. was readmitted to [facility]. Per Garfield, she would like to be notified of pt.'s discharge location. MILO will follow up when pt. is to be discharged.
[2022-05-23 16:12] VITALS: BP 144/75
--- NOTE | 2022-05-23 16:38 | NUR ---
RN NOTE PT C/O GENERALIZED BODY PAIN WITH PAIN SCALE LEVEL OF 9/10 AND REQUESTED FOR DILAUDID MEDICATION. DILAUDID 1MG IVP GIVEN ORDERED Q4HRS PRN FOR SEVERE PAIN. WASTED PARTIAL DOSE WITNESSED BY CLAUDIA SOLIS. WILL MONITOR AND REASSESS PT.
[2022-05-23] MEDS: GLUCERNA SHAKE 237 ML CAN PO SCH (16:41)
--- NOTE | 2022-05-23 16:42 | NUR ---
SS Note: Per APS worker, Garfield GuanJeffry [phone] I called and left her a voicemail to update her about DC plan. No clear DC plan at thsi time. SW will follow up Thursday.
--- NOTE | 2022-05-23 18:38 | NUR ---
MS RN CLOSING NOTE PT ASLEEP IN BED, EASILY AROUSED. PT A/O X4, ABLE TO MAKE NEEDS KNOWN. PT ON ROOM AIR, TOLERATING WELL. NO SOB NOTED. NOT IN ANY SIGN OF RESPIRATORY DISTRESS. IV ACCESS IN LFA G#20, INTACT AND PATENT. ALL NEEDS ATTENDED. KEPT CLEAN AND COMFORTABLE AT ALL TIMES. SAFETY MEASURES IN PLACE: BED IN LOWEST AND LOCKED POSITION, BED RAILS UP X2, BED ALARM ON, AND CALL LIGHT WITHIN REACH. WILL ENDORSE TO TEXTILE KNITTER NURSE FOR ROHAN.
--- NOTE | 2022-05-23 19:30 | NUR ---
RN OPENING NOTES PT STABLE. NO S/SX OF RESPIRATORY DISTRESS NOTED. ALL NEEDS MET AT THIS TIME.
[2022-05-23 20:00] VITALS: BP 126/75
--- NOTE | 2022-05-23 20:32 | NUR ---
RN NOTES ADMINISTERD 0.5 ML OF DILAUDID PER MD ORDER. VS WNL.
[2022-05-23] MEDS ORDERED: INSULIN GLARGINE,BASAGLAR 100 UNIT/ML INSULN.PEN SQ SCH (22:00)
[2022-05-24] MEDS: HYDROMORPHONE INJ 2 MG/ML DISP.SYRIN IV PRN ×3 (01:30→09:44)
--- NOTE | 2022-05-24 01:30 | NUR ---
RN NOTES ADMINISTERD 0.5 ML OF DILAUDID PER MD ORDER. VS WNL.
[2022-05-24] MEDS: ENOXAPARIN SODIUM 40 MG/0.4 ML DISP.SYRIN SQ SCH (05:34)
[2022-05-24] MEDS: METHOCARBAMOL (500MG) 500 MG TABLET PO SCH ×2 (06:40→12:38)
--- NOTE | 2022-05-24 06:50 | NUR ---
RN CLOSING NOTES PT STABLE. NO S/SX OF RESPIRATORY DISTRESS NOTED. ALL NEEDS MET. ALL ORDERS CARRIED OUT. PT KEPT CLEAN AND DRY. TREATED PAIN THROUGHOUT SHIFT. WILL ENDORSE TO ONCOMING SHIFT FOR ROHAN.
[2022-05-24 06:54] LABS: CALCIUM, SERUM 8.7 mg/dL (8.5-10.1); CREATININE 0.5 mg/dL (0.6-1.3); PHOSPHORUS 3.4 mg/dL (2.5-4.9); POTASSIUM 4.4 mmol/L (3.5-5.1)
--- NOTE | 2022-05-24 07:26 | NUR ---
MS RN OPENING NOTE RECEIVED PT AWAKE RESTING IN BED. PT A/O X3-4, WITH FORGETFULNESS. PT ABLE TO MAKE NEEDS KNOWN. PT ON ROOM AIR, TOLERATING WELL. NO SOB NOTED. NOT IN ANY SIGN OF RESPIRATORY DISTRESS. IV ACCESS IN LFA G#20, INTACT AND PATENT. SAFETY MEASURES IN PLACE: BED IN LOWEST AND LOCKED POSITION, BED RAILS UP X2, BED ALARM ON, AND CALL LIGHT WITHIN REACH. WILL CONTINUE TO MONITOR PT.
[2022-05-24 08:00] VITALS: BP 129/78
[2022-05-24] MEDS: GLUCERNA SHAKE 237 ML CAN PO SCH (08:09)
[2022-05-24] MEDS: ASPIRIN 81 MG TAB.CHEW PO SCH (08:43)
[2022-05-24] MEDS: GABAPENTIN 300 MG CAPSULE PO SCH ×2 (08:43→12:38)
[2022-05-24] MEDS: METFORMIN 500 MG TABLET PO SCH (08:43)
--- NOTE | 2022-05-24 09:46 | NUR ---
RN NOTE PT C/O GENERALIZED BODY PAIN WITH PAIN SCALE LEVEL OF 9/10 AND REQUESTED FOR DILAUDID MEDICATION. DILAUDID 1MG IVP GIVEN ORDERED Q4HRS PRN FOR SEVERE PAIN. WASTED PARTIAL DOSE WITNESSED BY CLAUDIA ASIF. WILL MONITOR AND REASSESS PT.
[2022-05-24] MEDS ORDERED: KETOROLAC TROMETHAMINE INJ 30 MG/ML VIAL IV ONE (12:30)
--- NOTE | 2022-05-24 12:30 | NUR ---
RN NOTE PT WAS SEEN BY DR. MARCO ANTONIO PYLE PRIOR TO PT'S DISCHARGE WITH ORDERS TO GIVE TORADOL 15MG IVP ONE TIME DOSE FOR PAIN. ORDERS CARRIED OUT.
--- NOTE | 2022-05-24 12:41 | NUR ---
RN NOTE TORADOL 15MG IVP ADMINISTERED ORDERED ONE TIME DOSE FOR GENERALIZED BODY PAIN WITH PAIN SCALE LEVEL OF 7/10. WILL MONITOR AND REASSESS PT.
--- NOTE | 2022-05-24 13:35 | NUR ---
BANK MESSENGER NOTE PT DISCHARGED TO [facility] IN STABLE CONDITION. PT A/O X3-4, ABLE TO MAKE NEEDS KNOWN. ON ROOM AIR, TOLERATING WELL WITH SPO2 AT 96%. NO SOB NOTED. NOT IN ANY SIGN OF RESPIRATORY DISTRESS. REASSESSED PT'S LEVEL AFTER ADMINISTERING TORADOL IVP, PER PT IS EFFECTIVE WITH PAIN SCALE LEVEL OF 2/10 TO HER GENERALIZED BODT PAIN. VITAL SIGNS TAKEN, STABLE, AND RECORDED. PT REFUSED BODY ASSESSMENTS AND PHOTOGRAPHS OF SKIN ISSUES. ALL BELONGINGS ACCOUNTED FOR. DISCHARGED INSTRUCTIONS AND HEALTH TEACHINGS EXPLAINED TO PT AND PT VERBALIZED UNDERSTANDING. LFA G#20 REMOVED WITH NO ACTIVE BLEEDING NOTED. DRY PRESSURE DRESSING APPLIED TO SITE. NAME BAND REMOVED. PT LEFT THE UNIT AT 1330 VIA [email or web address], ACCOMPANIED BY 3 EMT'S. MD AND CHARGED NURSE AWARE OF DISCHARGED. Addendum: 05/24/22 at 1720 by CHANI FELIZ RN ADDENDUM REPORT GIVEN EARLIER TO CLAUDIA JAVED OF [facility].
--- NOTE | 2022-05-24 13:56 | NUR ---
RN NOTE PT WAS SEEN BY DR. MARCO ANTONIO PYLE PRIOR TO PT'S DISCHARGE WITH ORDERS TO GIVE TORADOL 15MG IVP ONE TIME DOSE FOR PAIN. ORDERS CARRIED OUT. Addendum: 05/24/22 at 1357 by CHANI FELIZ RN DELETE ENTRY WRONG TIME
== END 2022-05-24 13:30 | DRG 421 ==
LOC: MED 05:14
DX: R62.7 Adult failure to thrive (principal); D69.6 Thrombocytopenia, unspecified; E44.1 Mild protein-calorie malnutrition; E51.2 Wernicke's encephalopathy; E88.09 Other disorders of plasma-protein metabolism, not elsewhere classified; G89.18 Other acute postprocedural pain; E87.1 Hypo-osmolality and hyponatremia; E11.65 Type 2 diabetes mellitus with hyperglycemia; F17.200 Nicotine dependence, unspecified, uncomplicated; I10 Essential (primary) hypertension; G89.29 Other chronic pain; Z79.01 Long term (current) use of anticoagulants; Z79.82 Long term (current) use of aspirin; Z79.4 Long term (current) use of insulin; Z79.84 Long term (current) use of oral hypoglycemic drugs; Z79.899 Other long term (current) drug therapy; F10.10 Alcohol abuse, uncomplicated; Y90.9 Presence of alcohol in blood, level not specified; E87.6 Hypokalemia; Z96.698 Presence of other orthopedic joint implants
CPT/HCPCS: 36415; 80048-TC; 82962-TC; 83735-TC; 84100-TC; 87081-TC; 97110-TC; 97112-TC; 97530-TC; G0378; J1170; J1650; J1885

== ENCOUNTER 2022-05-28 20:03 | Emergency (ER) | payer MEDICAID ==
[~2022-05-28] VITALS: Ht 160 cm; Wt 47.6 kg
[2022-05-28] MEDS ORDERED: MORPHINE SULFATE INJ 4 MG/ML DISP.SYRIN ONE (20:54)
[2022-05-28] MEDS ORDERED: ONDANSETRON HCL/PF 4 MG/2 ML VIAL ONE (20:54)
--- NOTE | 2022-05-28 20:55 | NUR ---
PT BIBPA C/O ABD PAIN AND N/V. PT AAOX4 BREATHING EVENLY AND UNLABORED. PT STATES THAT SHE HAD HIP SX "A FEW WEEKS" AGO AND STILL FEELS PAIN. PT AMBULATORY WITH ASSISTANCE. PT ATTACHED TO MONITOR AND POX. MD AT BEDSIDE
[2022-05-28] MEDS ORDERED: MORPHINE SULFATE INJ 2 MG/ML DISP.SYRIN IV ONE (21:00)
[2022-05-28] MEDS ORDERED: IV NS 0.9% 1,000 ML IV ONE (21:00)
[2022-05-28] MEDS ORDERED: ONDANSETRON HCL/PF 4 MG/2 ML VIAL IVP ONE (21:00)
[2022-05-28] MEDS ORDERED: CT SWABBABLE VALVE TRANS SET 1 EA INFUS.SET MC ONE (21:05)
[2022-05-28] MEDS ORDERED: IV NS 0.9% 250 ML IV ONE (21:05)
[2022-05-28] MEDS ORDERED: IOHEXOL-300 100 ML VIAL IV ONE (21:05)
--- NOTE | 2022-05-28 21:16 | NUR ---
BINDER FOLDER OPERATOR AT PT'S BEDSIDE
[2022-05-28 21:29] LABS: BILIRUBIN,URINE NEGATIVE (NEGATIVE); COLOR,URINE YELLOW (YELLOW); LEUKOCYTE ESTERASE ,URINE NEGATIVE (NEGATIVE); NITRITE, URINE NEGATIVE (NEGATIVE); PH,URINE 6.5 (5.0-8.0); PROTEIN,URINE NEGATIVE (NEGATIVE); UGLUCOSE NEGATIVE (NEGATIVE); UROBILINOGEN,URINE 0.2 EU/dL (0.2)
--- NOTE | 2022-05-28 21:49 | NUR ---
PT TAKEN TO CT
[2022-05-28 21:53] LABS: BASOPHILS % (AUTO) 0.8 % (0.0-2.0); EOSINOPHILS % (AUTO) 0.4 % (0.0-6.0); HEMATOCRIT 34 % (33-45); HEMOGLOBIN 10.7 g/dL (11.5-14.8); LYMPHOCYTES # (AUTO) 0.7 K/uL (0.8-4.8); LYMPHOCYTES % (AUTO) 11.1 % (20.0-44.0); MEAN CORPUSCULAR HGB CONC 31 g/dl (31.0-36.0); MEAN CORPUSCULAR VOLUME 81 fL (82-100); MONOCYTES # (AUTO) 0.9 K/uL (0.1-1.30); MONOCYTES % (AUTO) 14.3 % (2.0-12.0); NEUTROPHILS # (AUTO) 4.4 K/uL (1.8-8.9); NEUTROPHILS % (AUTO) 73.4 % (43.0-81.0); PLATELET COUNT (AUTO) 187 K/uL (150-450); RED BLOOD CELL COUNT(AUTO) 4.26 MIL/uL (4.0-5.2)
--- NOTE | 2022-05-28 21:56 | NUR ---
PT RETURNED TO ER BED [address]
[2022-05-28 22:00] LABS: CALCIUM, SERUM 8.9 mg/dL (8.5-10.1); CREATININE 0.6 mg/dL (0.6-1.3); POTASSIUM 3.7 mmol/L (3.5-5.1)
[2022-05-28 22:06] LABS: BILIRUBIN,TOTAL 1.1 mg/dL (0.2-1.0); TOTAL PROTEIN, SERUM 7.9 g/dL (6.4-8.2)
[2022-05-29] MEDS ORDERED: KETOROLAC TROMETHAMINE INJ 30 MG/ML VIAL IV ONE (00:30)
[2022-05-29] MEDS ORDERED: KETOROLAC TROMETHAMINE 15 MG/ML VIAL ONE (00:47)
--- NOTE | 2022-05-29 01:57 | NUR ---
REPORT GIVEN Primo AVELAR AT [facility] ETA: 30 MIN
--- NOTE | 2022-05-29 02:27 | NUR ---
REPORT GIVEN TO [facility] FOR PT TO DC TO [facility]. [facility] AT PT'S BEDSIDE. Patient discharged to [facility] in stable condition. Written and verbal after care instructions given. Patient verbalizes understanding of instruction. IV removed. Catheter intact and site benign. Pressure and 4x4 applied to site. No bleeding noted.
[2022-05-29 02:37] VITALS: BP 148/91
== END 2022-05-29 02:41 ==
LOC: ER 20:09
DX: R10.32 Left lower quadrant pain (principal); R10.31 Right lower quadrant pain; E11.9 Type 2 diabetes mellitus without complications; I10 Essential (primary) hypertension; Z96.642 Presence of left artificial hip joint; Z79.82 Long term (current) use of aspirin; Z79.4 Long term (current) use of insulin
CPT/HCPCS: 99284; 74176; 96374; 96361; 96375 ×2; 85025; 83690; 81003; 36415; 80053; J2270; J2405; J7030; J7050; Q9967; J1885